=== PATIENT | male | born 1985 | race Caucasian/White ===

== ENCOUNTER 2022-02-21 14:30 | Inpatient (IN) | payer BC, SELFPAY ==
--- NOTE | 2022-02-21 14:51 | ED.C_ITS ---
Documented by User: JUANCARLOS Chappell 02/21/22 16:23 HPI - Psych General: Chief Complaint: Psychiatric Symptoms Stated Complaint: 96 hour hold Time Seen by Provider: 02/21/22 14:43 History of Present Illness: Patient is a 36-year-old male who comes to the ED via police for mental health evaluation. Past medical history of PTSD, bipolar disorder. Patient is giving minimal responses to my questions. When asked if he is suicidal he says I am not going to tell you my answer because then you guys will keep me here. Patient did endorse wanting something for anxiety. He denies any recent drug or alcohol use. protective services officer brought in signed affidavit on patient. Officer told nurse that patient has a history of meth amphetamine use. Affidavit stated that police officers were called out to the scene because of a combative suspect. Once they are on the scene he still patient and he refused to get out of his vehicle. He then drove off in the vehicle and state troopers were able to finally get him to stop and restrain patient. He stated to them that he wanted to end his life and they also said he was having hallucinations. Patient's family told officers that they think he is having another mental episode. Associated symptoms: Reports suicidal ideation Review of Systems Const: Denies: fever(s), chills or fatigue Eyes: Denies: change in vision or eye discomfort ENMT: Denies: throat pain, odynophagia, nasal discharge or nasal congestion Card: Denies: chest pain, palpitations, edema, swelling of feet/ankles, dyspnea on exertion or orthopnea Resp: Denies: dyspnea, productive cough or non-productive cough GI: Denies: abdominal pain, nausea, vomiting, diarrhea, constipation or hematochezia : Denies: flank pain, difficulty urinating, dysuria or hematuria Musc: Denies: neck pain, back pain or extremity swelling Skin/Breast: Denies: rash or new lesions Neuro: Denies: headache(s), numbness in extremities or weakness in extremities Psych: Reports: anxiety and suicidal ideation Physical Exam Const: COMMON NORMALS: patient oriented x3 HENMT: COMMON NORMALS: normocephalic HEAD & SCALP: normocephalic MOUTH: Normal oral and palatal mucosa present THROAT: posterior oropharynx normal and uvula midline Neck/C-Spine: COMMON NORMALS: supple GENERAL: Yes normal visual inspection Resp: COMMON NORMALS: normal respiratory effort, No retractions, No use of acc essory muscles and clear to auscultation bilaterally AUSCULTATION: clear to auscultation bilaterally Cardio: COMMON NORMALS: regular rate, regular rhythm, S1 normal heart sound present, S2 normal heart sound present, No gallops present (Cardio), No clicks present (Cardio), No murmurs present (Cardio) and Peripheral pulses 2+ throughout RATE: regular rate RHYTHM: regular rhythm HEART SOUNDS: S1 normal heart sound present and S2 normal heart sound present PERIPHERAL PULSES: Peripheral pulses 2+ throughout GI: COMMON NORMALS: Normal to inspection, nondistended, normoactive bowel sounds present, Soft to palpation, non-tender and no masses PALPATION: Yes Soft to palpation : COMMON NORMALS: Yes no CVA tenderness BLADDER/KIDNEY EXAM: Yes no CVA tenderness Back/Pelvis: COMMON NORMALS: no CVA tenderness Neuro: COMMON NORMALS: patient oriented x3 GAIT: Yes Normal gait present Course Vital Signs: Vital signs: Vital Signs Temperature 98.2 F 02/21/22 15:06 Pulse Rate 58 L 02/21/22 15:06 Respiratory Rate 16 02/21/22 15:06 Blood Pressure 134/97 02/21/22 15:06 Pulse Oximetry 98 02/21/22 15:06 Oxygen Delivery Me thod 02/21/22 15:06 [facility] - Psych Medical Decision Making Patient is a 36-year-old male comes to the ED via police with signed affidavit for psych evaluation. Signed affidavit stated patient was having hallucinations and made comments of wanting to kill himself. He has a history of meth use. Psych prescreening labs performed. I contacted Dr. Dowd about patient case and he accepts admission of patient to the NPU. Dr. Andrews will be placing the admitting orders. Lab Data I reviewed the patient's lab results. 02/21/22 15:05 02/21/22 15:05 Laboratory Results WBC 12.0 10^3/uL (4.0-10.0) H 02/21/22 15:05 RBC 4.76 10^6/uL (4.1-5.3) 02/21/22 15:05 Hgb 13.9 g/dL (11.7-16.6) 02/21/22 15:05 Hct 41.9 % (42.0-52.0) L 02/21/22 15:05 MCV 88.0 fl (80-94) 02/21/22 15:05 MCH 29.2 pg (28.0-34.0) 02/21/22 15:05 MCHC 33.2 g/dL (30.0-36.0) 02/21/22 15:05 RDW 15.9 % (12.1-15.1) H 02/21/22 15:05 Plt Count 421 10^3/cmm (130-400) H 02/21/22 15:05 MPV 9.7 fL (7.4-10.4) 02/21/22 15:05 Neut % (Auto) 71.7 % 02/21/22 15:05 Lymph % (Auto) 20.9 % 02/21/22 15:05 [place] % (Auto) 6.7 % 02/21/22 15:05 Eos % (Auto) 0.1 % 02/21/22 15:05 Baso % (Auto) 0.3 % 02/21/22 15:05 Neut # (Auto) 8.60 10^3/uL (1.8-7.7) H 02/21/22 15:05 Lymph # (Auto) 2.5 10^3/uL (0.8-4.8) 02/21/22 15:05 [place] # (Auto) 0.8 10^3/uL (0.2-0.9) 02/21/22 15:05 Eos # (Auto) 0.0 10^3/uL (0.0-0.8) 02/21/22 15:05 Baso # (Auto) 0.0 10^3/uL (0.0-0.1) 02/21/22 15:05 Nucleated RBC % (auto) 0 % 02/21/22 15:05 Nucleated RBCs # 0.0 /100WBC 02/21/22 15:05 Sodium 137 mmol/L (136-145) 02/21/22 15:05 Potassium 4.0 mmol/L (3.5-5.1) 02/21/22 15:05 Chloride 103 mmol/L (98-107) 02/21/22 15:05 Carbon Dioxide 23 mmol/L (22-29) 02/21/22 15:05 Anion Gap 15.0 (5-19) 02/21/22 15:05 BUN 18 mg/dL (6-20) 02/21/22 15:05 Creatinine 0.6 mg/dL (0.7-1.2) L 02/21/22 15:05 GFR Calculation 151.6 mL/min (90-130) H 02/21/22 15:05 Glucose 80 mg/dL (65-115) 02/21/22 15:05 Calculated Osmolality 285 mOsm/kg (285-295) 02/21/22 15:05 Calcium 8.4 mg/dL (8.5-10.5) L 02/21/22 15:05 Total Bilirubin 0.7 mg/dL (0.15-1.2) 02/21/22 15:05 AST 150 U/L (0-40) H 02/21/22 15:05 ALT 224 U/L (0-41) H 02/21/22 15:05 Alkaline Phosphatase 150 U/L (40-130) H 02/21/22 15:05 Total Protein 6.6 g/dL (6.6-8.7) 02/21/22 15:05 Albumin 3.9 g/dL (3.5-5.2) 02/21/22 15:05 Globulin 2.7 g/dL (1.3-4.6) 02/21/22 15:05 Lipase 17 U/L (13-60) 02/21/22 15:05 Salicylates < 0.3 mg/dL (3-10) L 02/21/22 15:05 Acetaminophen < 5.0 ug/mL (10-30) L 02/21/22 15:05 Ethyl Alcohol < 10 mg/dL (0-10) 02/21/22 15:05 Discharge Plan Discharge Patient Disposition: Admitted As Inpatient Clinical Impression: Acute psychosis, Suicidal ideation, Drug-induced psychotic disorder Condition: Stable Sign Out Sign Out Data: Patient Sign Out occurred on 02/21/22 at 15:41. Patient's care was discussed, and care was transferred from to Geoffrey Andrews DO. Coding Level of Care Code ED Crane Follower for Chg Fwd Exam Comprehensive Documented by User: Geoffrey Andrews DO 02/21/22 15:45 HPI - Psych General: Chief Complaint: Psychiatric Symptoms Stated Complaint: 96 hour hold Time Seen by Provider: 02/21/22 14:43 Course Vital Signs: Vital signs: Vital Signs Temperature 98.2 F 02/21/22 15:06 Pulse Rate 58 L 02/21/22 15:06 Respiratory Rate 16 02/21/22 15:06 Blood Pressure 134/97 02/21/22 15:06 Pulse Oximetry 98 02/21/22 15:06 Oxygen Delivery Me thod 02/21/22 15:06 MDM - Psych Medical Decision Making Patient is a 36-year-old male comes to the ED via police with signed affidavit for psych evaluation. Signed affidavit stated patient was having hallucinations and made comments of wanting to kill himself. He has a history of meth use. Psych prescreening labs performed. I contacted Dr. Dowd about patient case and he accepts admission of patient to the NPU. Dr. Andrews will be placing the admitting orders. Chart reviewed and patient discussed with midlevel. Agree with assessment and plan. Orders written concur with history review of systems and physical as documented by Sadi Gonzales. Lab Data 02/21/22 15:05 02/21/22 15:05 Laboratory Results WBC 12.0 10^3/uL (4.0-10.0) H 02/21/22 15:05 RBC 4.76 10^6/uL (4.1-5.3) 02/21/22 15:05 Hgb 13.9 g/dL (11.7-16.6) 02/21/22 15:05 Hct 41.9 % (42.0-52.0) L 02/21/22 15:05 MCV 88.0 fl (80-94) 02/21/22 15:05 MCH 29.2 pg (28.0-34.0) 02/21/22 15:05 MCHC 33.2 g/dL (30.0-36.0) 02/21/22 15:05 RDW 15.9 % (12.1-15.1) H 02/21/22 15:05 Plt Count 421 10^3/cmm (130-400) H 02/21/22 15:05 MPV 9.7 fL (7.4-10.4) 02/21/22 15:05 Neut % (Auto) 71.7 % 02/21/22 15:05 Lymph % (Auto) 20.9 % 02/21/22 15:05 [place] % (Auto) 6.7 % 02/21/22 15:05 Eos % (Auto) 0.1 % 02/21/22 15:05 Baso % (Auto) 0.3 % 02/21/22 15:05 Neut # (Auto) 8.60 10^3/uL (1.8-7.7) H 02/21/22 15:05 Lymph # (Auto) 2.5 10^3/uL (0.8-4.8) 02/21/22 15:05 [place] # (Auto) 0.8 10^3/uL (0.2-0.9) 02/21/22 15:05 Eos # (Auto) 0.0 10^3/uL (0.0-0.8) 02/21/22 15:05 Baso # (Auto) 0.0 10^3/uL (0.0-0.1) 02/21/22 15:05 Nucleated RBC % (auto) 0 % 02/21/22 15:05 Nucleated RBCs # 0.0 /100WBC 02/21/22 15:05 Sodium 137 mmol/L (136-145) 02/21/22 15:05 Potassium 4.0 mmol/L (3.5-5.1) 02/21/22 15:05 Chloride 103 mmol/L (98-107) 02/21/22 15:05 Carbon Dioxide 23 mmol/L (22-29) 02/21/22 15:05 Anion Gap 15.0 (5-19) 02/21/22 15:05 BUN 18 mg/dL (6-20) 02/21/22 15:05 Creatinine 0.6 mg/dL (0.7-1.2) L 02/21/22 15:05 GFR Calculation 151.6 mL/min (90-130) H 02/21/22 15:05 Glucose 80 mg/dL (65-115) 02/21/22 15:05 Calculated Osmolality 285 mOsm/kg (285-295) 02/21/22 15:05 Calcium 8.4 mg/dL (8.5-10.5) L 02/21/22 15:05 Total Bilirubin 0.7 mg/dL (0.15-1.2) 02/21/22 15:05 AST 150 U/L (0-40) H 02/21/22 15:05 ALT 224 U/L (0-41) H 02/21/22 15:05 Alkaline Phosphatase 150 U/L (40-130) H 02/21/22 15:05 Total Protein 6.6 g/dL (6.6-8.7) 02/21/22 15:05 Albumin 3.9 g/dL (3.5-5.2) 02/21/22 15:05 Globulin 2.7 g/dL (1.3-4.6) 02/21/22 15:05 Lipase 17 U/L (13-60) 02/21/22 15:05 Salicylates < 0.3 mg/dL (3-10) L 02/21/22 15:05 Acetaminophen < 5.0 ug/mL (10-30) L 02/21/22 15:05 Ethyl Alcohol < 10 mg/dL (0-10) 02/21/22 15:05 Discharge Plan Discharge Patient Disposition: Admitted As Inpatient Clinical Impression: Acute psychosis, Suicidal ideation, Drug-induced psychotic disorder Condition: Stable Sign Out Sign Out Data: Patient Sign Out occurred on 02/21/22 at 15:41. Patient's care was discussed, and care was transferred from to Geoffrey Andrews DO. Coding Level of Care Code ED Crane Follower for Bruce Fwd Exam Comprehensive
[2022-02-21 15:06] VITALS: BP 134/97; PULSE 58; RESP 16; TEMP 36.8; O2SAT 98; BMI 23.2
[2022-02-21 15:13] LABS: Basophils % 0.3 %; Eosinophils % 0.1 %; Hematocrit 41.9 % (42.0-52.0); Hemoglobin 13.9 g/dL (11.7-16.6); Lymphocytes # 2.5 10^3/uL (0.8-4.8); Lymphocytes % 20.9 %; Mean Corpuscular HGB Conc 33.2 g/dL (30.0-36.0); Mean Corpuscular Hemoglobin 29.2 pg (28.0-34.0); Mean Platelet Volume 9.7 fL (7.4-10.4); Monocytes # 0.8 10^3/uL (0.2-0.9); Monocytes % 6.7 %; Neutrophils % 71.7 %; Nucleated Red Blood Cells % 0 %; Platelet Count 421 10^3/cmm (130-400); Red Blood Count 4.76 10^6/uL (4.1-5.3); Red Cell Distribution Width 15.9 % (12.1-15.1)
[2022-02-21] MEDS: LORazepam 2 mg Tablet PO (15:31)
[2022-02-21 15:32] LABS: Alanine Aminotransferase 224 U/L (0-41); Albumin Level 3.9 g/dL (3.5-5.2); Alkaline Phosphatase 150 U/L (40-130); Aspartate Amino Transferase 150 U/L (0-40); Blood Urea Nitrogen 18 mg/dL (6-20); Calcium 8.4 mg/dL (8.5-10.5); Carbon Dioxide 23 mmol/L (22-29); Chloride 103 mmol/L (98-107); Globulin 2.7 g/dL (1.3-4.6); Glomerular Filtration Rate 151.6 mL/min (90-130); Glucose 80 mg/dL (65-115); Lipase 17 U/L (13-60); Osmolality Calculated 285 mOsm/kg (285-295); Sodium 137 mmol/L (136-145); Total Bilirubin 0.7 mg/dL (0.15-1.2); Total Protein 6.6 g/dL (6.6-8.7)
[2022-02-21 15:33] LABS: Acetaminophen < 5.0 ug/mL (10-30); Alcohol Level < 10 mg/dL (0-10); Salicylate < 0.3 mg/dL (3-10)
[2022-02-21 18:28] VITALS: BP 125/91; PULSE 54; RESP 16; O2SAT 91
[2022-02-21 19:35] VITALS: BP 125/91; PULSE 54; RESP 16; TEMP 36.8; O2SAT 91
[2022-02-22] VITALS (8 sets, daily range): BP systolic 125–135; BP diastolic 91–99; PULSE 56–107; RESP 17–20; TEMP 36.3–36.9; O2SAT 93–99
--- NOTE | 2022-02-22 00:46 | PC.NURSE ---
at 2350 notified security to come and removed 2 small zip lock back with powdery residue in them. Security Parker came to unit removed from unit.
--- NOTE | 2022-02-22 01:20 | PC.NURSE ---
2100 medication administration attempt to wake pt who jerked his shoulder away from my touch an grunted refused medication pass.
[2022-02-22] MEDS: potassium chloride ER 20 mEq Tablet 40 MEQ PO (08:06)
[2022-02-22] MEDS: FUROsemide 40 mg Tablet 80 MG PO (08:06)
[2022-02-22] MEDS: diphenhydrAMINE 50 mg Capsule PO ×2 (08:06→12:34)
[2022-02-22] MEDS: LORazepam 2 mg Tablet PO ×2 (08:07→12:34)
[2022-02-22] MEDS: haloperidol 5 mg Tablet PO ×2 (08:07→12:33)
--- NOTE | 2022-02-22 09:30 | PC.OT ---
OT EVALUATION ORDERS RECEIVED. NURSING ASKS THAT EVALUATION BE HELD TODAY DUE TO AGITATION.
--- NOTE | 2022-02-22 12:39 | PC.NURSE ---
Patient received this morning laying in bed. Restless; keeps moving from bed to lying on floor mat. Vital signs WNL. Patient agitated and verbal aggressive towards Nurse. Complaint of abdominal and chest pain this morning; Doctor made aware. rec'd orders for RT eval and benadryl 50mg by every 4 hours PRN and Ativan 2mg by mouth every 4 hrs PRN for agitation. Received Ativan, Benadryl, and Haldol as ordered for agitation this morning 0748 with good result. Patient at present came out of room and sat on floor; nurse and stafff assisted patient back into room;patient very restless and agitated. Prn ativan, benadryl and haldol given as prescribed at this time. In bed resting. Rt eval done and patient cleared. O2 sat 99%. Monitoring.
--- NOTE | 2022-02-22 13:48 | CT_ITS ---
WS: [id number] CT HEAD TECHNIQUE: Noncontrast CT of the head obtained from the skullbase to the vertex. CLINICAL INFORMATION: unwitness fall COMPARISON: None. DLP: 990.[address] scans at [facility] use at least one of these dose optimization techniques: automated e xposure control; mA and/or kV adjustment per patient size (includes targeted exams where dose is matc hed to clinical indication); or iterative reconstruction. FINDINGS: No evidence of intracranial hemorrhage or mass effect. Ventricular system and basal cisterns are curran nt. No extra-axial fluid collections. No evidence of mass or mass effect. Normal montemayor-white different iation. Mucosal thickening in the RIGHT maxillary sinus. Mild mucosal thickening ethmoid air cells and RIGHT frontal ethmoidal recess. Frontal sinuses are well aerated. Mastoid air cells are well aerated. Zaira l posterior nasopharynx. CT/CT head wo con* [id number] IMPRESSION: 1. No evidence of intracranial hemorrhage or mass effect. 2. Normal montemayor-white differentiation. 3. Mild mucosal thickening in the RIGHT frontoethmoidal recess and RIGHT maxil nikolay sinus. Mild mucosal thickening ethmoid air cells. 4. No acute intracranial findings.
--- NOTE | 2022-02-22 13:55 | PC.NURSE ---
Patient found on bathroom floor in sitting position @ 1335. Unwitnessed. Assessment done. No open areas or swelling noted to head. Vital signs 135/99-57-20-97.4 temp- O2 sat 94%. Dr. Dowd notified of unwitnessed fall. Received order for CT of head w/o contrast.
--- NOTE | 2022-02-22 13:58 | P.NPUHP_ITS ---
Providers/Chief Complaint Admitting Physician: Ventura Dowd MD Chief Complaint: 96 hour hold HPI NPU History of Present Illness Jose Angel Madrigal is a 36 year old male who presented to the emergency department with the following report: Chief Complaint: Psychiatric Symptoms Stated Complaint: 96 hour hold Time Seen by Provider: 02/21/22 14:43 History of Present Illness: Patient is a 36-year-old male who comes to the ED via police for mental health evaluation. Past medical history of PTSD, bipolar disorder. Patient is giving minimal responses to my questions. When asked if he is suicidal he says I am not going to tell you my answer because then you guys will keep me here. Patient did endorse wanting something for anxiety. He denies any recent drug or alcohol use. state [address] police officer brought in signed affidavit on patient. Officer told nurse that patient has a history of meth amphetamine use. Affidavit stated that police officers were called out to the scene because of a combative suspect. Once they are on the scene he still patient and he refused to get out of his vehicle. He then drove off in the vehicle and state troopers were able to finally get him to stop and restrain patient. He stated to them that he wanted to end his life and they also said he was having hallucinations. Patient's family told officers that they think he is having another mental episode. Associated symptoms: Reports suicidal ideation. He was admitted to the neuropsychiatric unit for definitive treatment of those issues. From the time that he arrived at the unit as well as this morning he is fairly disoriented. He has not been able to really participate in the history taking process only having moments of transient alertness with being shaken or his name being yelled. He has only really mumbled here and there. He has made offensive comments to the nurses when they have moved some. He had to be assisted to his bed when he got to the unit. He had no helpful information for me and we at this point did not have a UDS to have a sense of why he is having the response he is having. Meds NPU Home Medications Medication Instructions Recorded Confirmed Last Taken Type furosemide 40 mg tablet 80 mg PO DAILY 02/21/22 02/21/22 02/21/22 History lisinopril 2.5 mg tablet 2.5 mg PO BEDTIME 02/21/22 02/21/22 02/20/22 History metoprolol succinate 25 mg 12.5 mg PO BEDTIME 02/21/22 02/21/22 02/20/22 History tablet,extended release 24 hr potassium chloride 20 mEq 40 meq PO DAILY 02/21/22 02/21/22 02/21/22 History tablet,extended release(part/cryst) quetiapine 100 mg tablet 100 mg PO BEDTIME 02/21/22 02/21/22 02/20/22 History sertraline 50 mg tablet 50 mg PO BEDTIME 02/21/22 02/21/22 02/20/22 History Allergies Allergy/AdvReac Type Severity Reaction Status Date / Time No Known Allergies Allergy Unverified 02/21/22 15:30 Mental Status Exam MSE Comments: This is a slender diminutive white male in hospital scrubs with poor grooming and intermittent occasional eye contact. No abnormal movements except for significant psychomotor retardation. Mostly uncooperative with exam in mild distress. Speech was limited and decreased rate and volume and slurred. Mood not described affect lethargic. Thought process linear at best. Thought content: Patient did not respond to any questions with anything other than mumbles but did not have aggression directed at himself or others, no cognitive interactions that would have indicated delusional content and he does not appear to be attending to internal stimuli but he does appear to be confused. Attention and concentration are impaired and memory was unable to be assessed but none were formally tested. He is arousable somewhat and it is unclear if he is oriented. Insight and judgment and impulse control appear impaired. Vitals/I&O/Wt Last Vital Signs Temp 98.2 F 02/22/22 14:00 Pulse 56 L 02/22/22 14:00 Resp 20 H 02/22/22 14:00 BP 125/91 02/22/22 14:00 Pulse Ox 97 02/22/22 14:00 O2 Del Method 02/22/22 14:00 Weight last 48 hrs Weight 79.832 kg Data NPU 02/21/22 15:05 02/21/22 15:05 A&P Assessment and plan (1) Acute psychosis: (2) Suicidal ideation: Plan This is a 36-year old white male with a significant medical history and possible addiction history who presents on psychiatric medication but are not able to communicate exactly what led to his 96-hour hold and confused state. Plan: 1.? Continue current medication.? We will restart home medications and try to get some collateral information given his current noncommunicative state. 2.? Continue every 15 minute checks for safety. 3.? Encourage individual, group and milieu therapies. 4.? Encourage sober living treatment after discharge at the highest level of care to which he is willing to commit. 5. Consider a hospitalist consult if he continues to be so confused. We will also reach out to close contacts to try to get some sense of what led to this presentation or if it represents a relapse in his addiction history. Attestations NPU Medical Necessity Statement*: Inpatient hospitalization is medically necessary and the clinically appropriate intervention at this time.? We will monitor/init iate medications and titrate and make changes as indicated.? He will be in the hospital over 2 midnights. Likely length of stay 4 to 6 days. Coding Level of Care Code Acute Code for Chg Fwd Diagnoses Acute psychosis F23 Suicidal ideation R45.851
--- NOTE | 2022-02-22 14:44 | PC.NURSE ---
Patient off unit; escorted to CT at this time via wheelchair by security and staff.
--- NOTE | 2022-02-22 15:09 | PC.NURSE ---
Patient returned to unit at this time with escorts.
--- NOTE | 2022-02-22 18:47 | US_ITS ---
WS: [id number] RIGHT UPPER QUADRANT ULTRASOUND HISTORY: transaminitis, hepatitis vs cirrhosis COMPARISON: None available. Liver: 15.9 cm in length. Normal size liver. No bile duct dilatation or mass. Portal Vein: Normal hepatopetal flow with monophasic waveform. Gallbladder: Normally distended gallbladder with no stones or wall thickening. CBD: 0.4 cm Pancreas: Normal size and echogenicity. Right kidney: 11.5 cm in length. Normal size and echogenicity. No hydronephrosis or mass. Aorta and IVC: Unremarkable abdominal aorta and IVC. No ascites. Cardiac chambers appear enlarged. US/US liver [id number] IMPRESSION: Normal RIGHT upper quadrant ultrasound. Mild cardiac enlargement.
--- NOTE | 2022-02-22 18:49 | XRR_ITS ---
PROCEDURE INFORMATION: Exam: XR Chest Exam date and time: 02/22/2022 6:59 PM Age: 36 years old Clinical indication: Shortness of breath; Additional info: Evalute for pneumonia TECHNIQUE: Imaging protocol: Radiologic exam of the chest. Views: 1 view. COMPARISON: No relevant prior studies available. FINDINGS: Lungs: Vascular congestion. Mixed interstitial and ground-glass opacities in the central lungs and left lung base. Pleural spaces: Unremarkable. No pleural effusion. No pneumothorax. Heart/Mediastinum: Cardiomegaly. Bones/joints: Unremarkable. XR/XR chest 1V portable [id number] IMPRESSION: Cardiomegaly with pulmonary edema. Multilobar pneumonia is considered less likely.
[2022-02-22 19:26] LABS: Basophils # 0.1 10^3/uL (0.0-0.1); Basophils % 0.8 %; Eosinophils # 0.1 10^3/uL (0.0-0.8); Eosinophils % 0.6 %; Hematocrit 49.6 % (42.0-52.0); Hemoglobin 16.5 g/dL (11.7-16.6); Lymphocytes # 3.7 10^3/uL (0.8-4.8); Lymphocytes % 33.4 %; Mean Corpuscular HGB Conc 33.3 g/dL (30.0-36.0); Mean Corpuscular Hemoglobin 29.2 pg (28.0-34.0); Mean Corpuscular Volume 87.8 fl (80-94); Mean Platelet Volume 9.8 fL (7.4-10.4); Monocytes # 0.8 10^3/uL (0.2-0.9); Monocytes % 7.5 %; Neutrophils # 6.33 10^3/uL (1.8-7.7); Neutrophils % 57.4 %; Nucleated Red Blood Cells % 0 %; Platelet Count 436 10^3/cmm (130-400); Red Blood Count 5.65 10^6/uL (4.1-5.3); Red Cell Distribution Width 15.9 % (12.1-15.1)
[2022-02-22 19:30] LABS: Amphetamines Screen Urine Positive (Negative); Barbiturates Screen Urine Negative (Negative); Benzodiazepines Screen Urine Positive (Negative); Cocaine Screen Urine Negative (Negative); Opiate Screen Urine Negative (Negative); PCP Screen Urine Negative (Negative); THC Screen Urine Positive (Negative)
[2022-02-22 19:59] LABS: Troponin T (5th) Once 351 ng/L (0-15)
[2022-02-22 20:02] LABS: NT Pro B Type Natriuretic Pept 10717 pg/mL (0-125)
--- NOTE | 2022-02-22 20:03 | ECG_ITS ---
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 Measurements Intervals [place] Rate: 97 P: 62 AK: 128 QRS: -54 QRSD: 92 T: 93 QT: 379 QTc: 483 Interpretive Statements SINUS RHYTHM LEFT ATRIAL ENLARGEMENT [-0.15mV P-WAVE IN V1/V2] LEFT ANTERIOR FASCICULAR BLOCK [QRS AXIS <= -45, QR IN I, RS IN II] NONSPECIFIC T-WAVE ABNORMALITY No previous ECG available for comparison Electronically Signed On 02-22-2022 20:45:47 DENTAL FLOSS P[employer]ER by Jamie Villegas M.D. [id number]
[2022-02-22 20:04] LABS: Alanine Aminotransferase 237 U/L (0-41); Albumin Level 3.5 g/dL (3.5-5.2); Alkaline Phosphatase 168 U/L (40-130); Anion Gap 17.1 (5-19); Aspartate Amino Transferase 156 U/L (0-40); Blood Urea Nitrogen 17 mg/dL (6-20); Calcium 9.2 mg/dL (8.5-10.5); Carbon Dioxide 24 mmol/L (22-29); Chloride 102 mmol/L (98-107); Globulin 3.1 g/dL (1.3-4.6); Glomerular Filtration Rate 84.1 mL/min (90-130); Glucose 86 mg/dL (65-115); Osmolality Calculated 289 mOsm/kg (285-295); Potassium 4.1 mmol/L (3.5-5.1); Sodium 139 mmol/L (136-145); Total Protein 6.6 g/dL (6.6-8.7)
[2022-02-22 20:52] LABS: Hepatitis A Antibody IgM Non-Reactive (Nonreactive); Hepatitis B Core AB, Total Non-Reactive (Nonreactive); Hepatitis B Surface AB 18.9 (11.5-1000); Hepatitis B Surface Antigen Non-Reactive (Nonreactive); Hepatitis C Virus Antibody Non-Reactive (Nonreactive)
--- NOTE | 2022-02-22 20:52 | P.CONIM_ITS ---
Providers/Reason For Consult Consulting Physician/Specialty*: Yany Stringer MD/Hospitalist Reason for Consult*: Altered mental status Requesting Physician: Ventura Dowd MD Attending Physician: Ventura Dowd MD History of Present Illness History of Present Illness History is obtained by talking to NPU staff who had earlier spoken to patient's family. Jose Angel Madrigal is a 36 year old male with PMH psychosis, ? CHF, emphysema brought to the ER yesterday. Reportedly patient had used amphetamines and marijuana and shown up at his father; honey where he collapsed at the entrance. He has been confused thereafter, speaking only a few ords which are out of context and delusional. His family thought that he may be off his medication and hence suffering acute psychosis for which he was brought to the hospital. He was admitted to the NPU where he has remained confused and drowsy since admission. Today he was using the shower where he fell and was noted to have urinated on the floors. He has been laying in his room for the day, disoriented when awake. He did complain of some chest discomfort at some point to the staff. CT head was perfromed after his fall which was negative. His vitals have been stable. He has been afebrile. Review of Systems General: Reports: ROS unobtainable due to mental status Medications/Allergies Home Medications Medication Instructions Recorded Confirmed Last Taken Type furosemide 40 mg tablet 80 mg PO DAILY 02/21/22 02/21/22 02/21/22 History lisinopril 2.5 mg tablet 2.5 mg PO BEDTIME 02/21/22 02/21/22 02/20/22 History metoprolol succinate 25 mg 12.5 mg PO BEDTIME 02/21/22 02/21/22 02/20/22 History tablet,extended release 24 hr potassium chloride 20 mEq 40 meq PO DAILY 02/21/22 02/21/22 02/21/22 History tablet,extended release(part/cryst) quetiapine 100 mg tablet 100 mg PO BEDTIME 02/21/22 02/21/22 02/20/22 History sertraline 50 mg tablet 50 mg PO BEDTIME 02/21/22 02/21/22 02/20/22 History Allergies Allergy/AdvReac Type Severity Reaction Status Date / Time No Known Allergies Allergy Unverified 02/21/22 15:30 Current Medications Generic Name Dose Route Start Last Admin Trade Name Jamesq PRN Reason Stop Dose Admin Diphenhydramine HCl 50 mg 02/22/22 07:48 02/22/22 12:34 Diphenhydramine 50 Mg Capsule PO 50 mg Q4H PRN Administration AGITATION Furosemide 80 mg 02/22/22 09:00 02/22/22 08:06 Furosemide 40 Mg Tablet PO 80 mg DAILY SARANYA Administration Haloperidol 5 mg 02/21/22 18:28 02/22/22 12:33 Haloperidol 5 Mg Tablet PO 5 mg Q4H PRN Administration AGITATION Lisinopril 2.5 mg 02/21/22 21:00 02/22/22 01:07 Lisinopril 5 Mg Tablet PO Not Given BEDTIME SARANYA Lorazepam 2 mg 02/22/22 07:47 02/22/22 12:34 Lorazepam 2 Mg Tablet PO 2 mg Q4H PRN Administration ANXIETY Metoprolol Succinate 12.5 mg 02/21/22 21:00 02/22/22 01:07 Metoprolol Succinate Er (24 Hr) 25 Mg Tablet PO Not Given BEDTIME SARANYA Potassium Chloride 40 meq 02/22/22 09:00 02/22/22 08:06 Potassium Chloride Er 20 Meq Tablet PO 40 meq DAILY SARANYA Administration Quetiapine Fumarate 100 mg 02/21/22 21:00 02/22/22 01:07 Quetiapine 100 Mg Tablet PO Not Given BEDTIME SARANYA Sertraline HCl 50 mg 02/21/22 21:00 02/22/22 01:07 Sertraline 50 Mg Tablet PO Not Given BEDTIME SARANYA Vitals/I&O/Wt Last Vital Signs Temp 97.4 F L 02/22/22 15:15 Pulse 102 H 02/22/22 19:47 Resp 17 02/22/22 19:47 BP 132/94 02/22/22 19:47 Pulse Ox 93 02/22/22 19:47 O2 Del Method 02/22/22 15:15 Weight last 48 hrs Weight 79.832 kg Physical Exam Narrative: General: Laying in bed on his right side, does not open eyes to calling name and does not follow any commands or answer questions at this time Chest: Normal vesicular breath sounds, no added sounds, equal good air entry bilaterally CVS: S1-S2 regular, no murmurs, no tachycardia, no gallops, no rubs Abdomen: Soft, nontender, no organomegaly, bowel sounds present Neuro: No focal deficits, moves all extremities in bed Extremities: edema over B/L feet, mild Data 02/22/22 19:12 02/22/22 19:12 Micro: Microbiology 02/22/22 19:15 Blood Culture - Preliminary Blood SPECIMEN COLLECTED 02/22/22 19:12 Blood Culture - Preliminary Blood SPECIMEN COLLECTED Other data: Ct head 02/21 CT/CT head wo con* [id number] IMPRESSION: ? 1.? No evidence of intracranial hemorrhage or mass effect. 2.? Normal montemayor-white differentiation. 3.? Mild mucosal thickening in the RIGHT frontoethmoidal recess and RIGHT maxillary sinus. Mild mucosal thickening ethmoid air cells. 4.? No acute intracranial findings. A&P Assessment and plan (1) Altered mental status: AMS of unclear etiology May be related to intoxication from polysustance abuse vs metabolic causes Yesterday he was noted to have abnormal liver enzymes on CMP and leukocytosis on CBC Check repeat CBC, CMP , U tox screen, hepatitis panel, TSH, ammonia level, trop series (c/o chest pain), ABG (h/o emphysema), CXRP to evaluate for pneumonia vs atelactasis. Additionally check RUQ US to ascertain liver and biliaty morphology . Further orders based on results of this testing Consult Attestations Medical Necessity Statement: per admitting Coding Level of Care Code Acute Code for Chg Fwd Diagnoses Altered mental status R41.82
[2022-02-22 21:19] LABS: Ammonia 28 umol/L (16-60)
[2022-02-22 21:31] LABS: Troponin(5th) Baseline 399 ng/L (0-15)
[2022-02-22 21:50] LABS: ABG PCO2 33.7 mmHg (35-45); ABG PH Result 7.46 (7.35-7.45); Base Excess ABG 0.8 mmol/L (-2.0-2.0); Blood Gas Allen Test Pos; Blood Gas Sample Site Radial, left; Blood Gas Sample Type Arterial; Oxygen Device ROOM AIR; PO2 ABG 59.6 mmHg (80.0-100.0)
--- NOTE | 2022-02-22 21:55 | USCV_ITS ---
Jose Angel Madrigal Age: 36 Gender: M : 1985 Exam Date: 02/22/2022 22:34 Ordering Phys: Nuno Car MD Technologist: YUNI [place] [facility] [place]: IV Meth abuser BP: 132 / 94 HR: 96 Rhythm: Sinus Technical Quality: Adequate MEASUREMENTS (Male / Female) Normal Values 2D ECHO LV Diastolic Diameter PLAX 5.8 cm 4.2 - 5.9 / 3.9 - 5.3 cm IVS Diastolic Thickness 0.8 cm 0.6 - 1.0 / 0.6 - 0.9 cm LVPW Diastolic Thickness 1.6 cm 0.6 - 1.0 / 0.6 - 0.9 cm LVOT Diameter 2.2 cm LV Ejection Fraction MOD 2C 11.7 % LV Ejection Fraction 2C AL 11.7 % LA Diameter 4.8 cm LA Width 5.8 cm LA Height 6.5 cm RA Width 5.2 cm RA Height 5.4 cm Aorta at Sinotubular Diameter 3.5 cm IVC Diameter 2.5 cm M-MODE Aortic Annulus Diameter 3.8 cm LA Ao Ratio MM 1.2 MV E Point Septal Separation 2.4 cm DOPPLER AV Peak Velocity 68.0 cm/s LVOT Peak Velocity 49.0 cm/s AV Area Cont Eq vti 2.2 cm squared AV Area Cont Eq pk 2.6 cm squared MV Area PHT 7.6 cm squared Mitral E to A Ratio 2.2 MV E' Velocity 49.5 cm/s Mitral E to MV E' Ratio 27.2 Mitral E to LV E' Lateral Ratio 23.8 Mitral E to LV E' Septal Ratio 32.8 TR Peak Velocity 244.3 cm/s TR Peak Gradient 23.9 mmHg TV Peak E Velocity 27.0 cm/s Right Atrial Pressure 15.0 mmHg Pulmonary Artery Systolic Pressu 38.9 mmHg PV Peak Velocity 59.0 cm/s RV Acceleration Time 0.1 s RV Ejection Time 0.3 s RV AcT/ET 0.3 FINDINGS Left Ventricle Dilated left ventricle. Increased left ventricular wall thickness. Severely decreased left ventricular systolic function. Left ventricular ejection fraction is estimated at 20 %. Severe Global left ventricular hypokinesis. Restrictive filling pattern with severely elevated filling pressures. Right Ventricle Normal right ventricular size and systolic function. Right ventricular systolic pressure 38.9 mmHg. Right Atrium Normal right atrial size. Right atrial pressure estimated at 15 mm Hg. Left Atrium Moderately increased left atrial size. Mitral Valve Moderately thickened mitral valve. No mitral valve stenosis. Mild-moderate mitral valve regurgitation. Aortic Valve Structurally normal trileaflet aortic valve. No aortic valve stenosis. No aortic valve regurgitation. Tricuspid Valve Structurally normal tricuspid valve. No tricuspid valve stenosis. Mild tricuspid valve regurgitation. Pulmonic Valve Structurally normal pulmonic valve. No pulmonary valve stenosis. Trace pulmonary valve regurgitation. Pericardium Trivial pericardial effusion. Aorta Normal size aortic root and proximal ascending aorta. IVC Dilated IVC with no respiratory variation. CONCLUSIONS 1. Dilated left ventricle. Increased left ventricular wall thickness. Severely decreased left ventricular systolic function. Left ventricular ejection fraction is estimated at 20 %. Severe Global left ventricular hypokinesis. Restrictive filling pattern with severely elevated filling pressures. 2. Mild-moderate mitral valve regurgitation. 3. Dilated IVC with no respiratory variation. 4. Mild pulmonary hypertension with pulmonary artery pressure estimated at 39 mm Hg. 5. No prior similar studies to compare. Genna Norris MD (Electronically Signed) Final Date: 23 February 2022 14:27 S
[2022-02-22 23:29] LABS: Procalcitonin 0.19 ng/mL (0-0.5)
[2022-02-22 23:40] LABS: C Reactive Protein 17.3 mg/L (0.0-4.9); Creatine Phosphokinase 209 U/L (39-308)
[2022-02-22 23:41] LABS: Alcohol Level < 10 mg/dL (0-10)
[2022-02-22 23:42] LABS: HIV 1 & 2 Antibody Non-Reactive (Non-Reactiv); HIV 1 & 2 Antigen Non-Reactive (Non-Reactiv)
[2022-02-22 23:49] LABS: Troponin 5 2HR 418.7 ng/L (0-15); Troponin 5 2HR Delta 19.7 ABS# (0-10)
[2022-02-23] VITALS (63 sets, daily range): BP systolic 124–132; BP diastolic 95–96; PULSE 83–123; RESP 10–29; TEMP 36.7–37.1; O2SAT 91–98
--- NOTE | 2022-02-23 03:00 | ECG_ITS ---
[facility] Test Date: 2022-02-23 Pat Name: Jose Angel Madrigal Department: Room: ICU02 Gender: Male Data Control Assistant: : 1985 Requested By: Yany Stringer Order Number: [id number] Dena MD: Genna Norris M.D. Measurements Intervals [place] Rate: 85 P: 62 NE: 146 QRS: 33 QRSD: 96 T: 139 QT: 397 QTc: 474 Interpretive Statements SINUS RHYTHM LEFT ATRIAL ENLARGEMENT [-0.15mV P-WAVE IN V1/V2] NONSPECIFIC T-WAVE ABNORMALITY Compared to ECG 02/22/2022 20:31:11 Left anterior fascicular block no longer present T-wave abnormality still present Electronically Signed On 02-23-2022 16:54:17 TRADE MANAGER by Genna Norris M.D. [id number]
[2022-02-23 03:52] LABS: Basophils # 0.1 10^3/uL (0.0-0.1); Basophils % 0.8 %; Eosinophils # 0.1 10^3/uL (0.0-0.8); Eosinophils % 0.7 %; Hematocrit 51.6 % (42.0-52.0); Hemoglobin 16.5 g/dL (11.7-16.6); Lymphocytes # 2.7 10^3/uL (0.8-4.8); Lymphocytes % 24.4 %; Mean Corpuscular Hemoglobin 28.7 pg (28.0-34.0); Mean Corpuscular Volume 89.7 fl (80-94); Mean Platelet Volume 10.3 fL (7.4-10.4); Monocytes # 0.9 10^3/uL (0.2-0.9); Monocytes % 7.7 %; Nucleated Red Blood Cells % 0 %; Platelet Count 451 10^3/cmm (130-400); Red Blood Count 5.75 10^6/uL (4.1-5.3); Red Cell Distribution Width 16.1 % (12.1-15.1); White Blood Count 11.2 10^3/uL (4.0-10.0)
[2022-02-23 04:16] LABS: Lactate (Lactic Acid level) 2.2 mmol/L (0.5-2.2)
[2022-02-23 05:11] LABS: Alanine Aminotransferase 210 U/L (0-41); Albumin Level 3.5 g/dL (3.5-5.2); Alkaline Phosphatase 160 U/L (40-130); Aspartate Amino Transferase 137 U/L (0-40); Blood Urea Nitrogen 18 mg/dL (6-20); Calcium 8.9 mg/dL (8.5-10.5); Carbon Dioxide 21 mmol/L (22-29); Chloride 102 mmol/L (98-107); Globulin 2.4 g/dL (1.3-4.6); Glomerular Filtration Rate 108.8 mL/min (90-130); Glucose 72 mg/dL (65-115); Magnesium 2.1 mg/dL (1.7-2.3); Osmolality Calculated 286 mOsm/kg (285-295); Sodium 138 mmol/L (136-145); Total Bilirubin 1.1 mg/dL (0.15-1.2); Total Protein 5.9 g/dL (6.6-8.7)
[2022-02-23 05:17] LABS: Anion Gap 19.4 (5-19); Potassium 4.4 mmol/L (3.5-5.1)
[2022-02-23] MEDS: potassium chloride ER 20 mEq Tablet 40 MEQ PO (08:28)
[2022-02-23] MEDS: FUROsemide 40 mg Tablet 80 MG PO (08:28)
[2022-02-23] MEDS: aspirin 81 mg EC Tablet PO (08:28)
[2022-02-23] MEDS: LORazepam 2 mg Tablet PO ×2 (12:15→19:05)
[2022-02-23] MEDS: enoxaparin 80 mg/0.8 mL Syringe SUBCUT ×2 (12:25→23:45)
--- NOTE | 2022-02-23 12:31 | PC.NURSE ---
Patient very anxious early this shift at shift change. This nurse assumed care. Patient has been resting in bed most of shift. Does get up to use urinal. Patient is able to follow commands. Took telemetry leads off, replaced. Patient can voice profanity towards staff, but has been pleasant with sitter and this nurse. Patient did voice some anxiety and ativan given per MAR and orders at 1215. Patient eating lunch at this time
--- NOTE | 2022-02-23 13:04 | P.PN_ITS ---
Subjective Subjective: Patient was transferred out of [facility] to [facility] level of care after he was found to have an NSTEMI. Labs revealed a baseline troponin of 351, trending up at 2 and 6-hour with a delta of 19 and 17 respectively. Patient denies any chest pain at this time. EKG does not show any acute ST-T wave changes. Patient is not willing to participate in any conversation. He is definitely more alert and awake today. He is able to answer questions from nursing staff regarding water and food. He is using the urinal today and is coordinated while using it. He is additionally able to self feed himself. He is no longer walking aimlessly in the room. However he does not answer any questions from me except to say that he feels great. Additional history obtained from his father is that patient was recently admitted at [facility] in [place] 1 month ago where he had extensive cardiac evaluation. He is unable to tell me if the patient had a cardiac cath at that time. His echocardiogram had revealed an ejection fraction of only 20% and it is believed that chronic drug use was the cause for his cardiomyopathy. Heparin drip had been ordered overnight but it was not run. I am uncertain as to why this was. An event report has been generated. Medications: Reviewed: Yes Vitals/I&O/Wt Last Vital Signs Temp 98.1 F 02/23/22 05:35 Pulse 103 H 02/23/22 07:27 Resp 16 02/23/22 07:27 BP 132/94 02/22/22 19:47 Pulse Ox 93 02/23/22 07:27 O2 Del Method 02/23/22 07:27 02/22/22 02/23/22 02/23/22 22:59 06:59 14:59 Intake Total 200 / 200 240 / 240 Output Total 400 / 400 850 / 850 Balance -200 / -200 -610 / -610 Weight last 48 hrs Weight 79.832 kg Physical Exam Narrative: General: No acute distress, unwilling to participate in any c onversation. No acute distress noted. He appears comfortable, lying flat in bed, saturating 93% on room air. HEENT: PERRLA, pupils bilaterally equal and reactive, pallors not present Chest: Normal vesicular breath sounds, no added sounds, equal good air entry bilaterally CVS: S1-S2 regular, no murmurs, no tachycardia, no gallops, no rubs Abdomen: Soft, nontender, no organomegaly, bowel sounds present Data 02/23/22 03:07 02/23/22 03:07 Micro: Microbiology 02/22/22 19:15 Blood Culture - Preliminary Blood SPECIMEN COLLECTED 02/22/22 19:12 Blood Culture - Preliminary Blood SPECIMEN COLLECTED A&P Assessment and plan (1) Altered mental status: Patient presented to the hospital with altered mental status. Likely secondary to drug use. Urine drug screen tested positive for amphetamines benzodiazepines and marijuana. Patient has multiple track robb over his body. He is currently awake and alert, appears to be in no obvious distress. He is coordinated, able to self-feed, he uses a urinal and using the bathroom independently today. He does not seem to be unsteady. (2) Acute psychosis: Likely secondary to drug use and underlying psych diagnosis. (3) NSTEMI (non-ST elevated myocardial infarction): Patient had complained of chest pain on and off to the n.p.o. staff. He really has not complained of chest pain since presenting to the ICU. Troponin series showing elevated serial troponins in the 350s range with delta of 17 and 19 at 2 and 6 hours respectively. Per his father patient was recently admitted at [facility] for what sounds like heart attack . It is unknown at this time whether he underwent a cardiac cath or not. Records have been requested. Last known EF is at 20%. For further cardiomyopathy was attributed to drug use. Patient is unwilling to engage in conversation with me at this time regarding his further care. He does not say yes or no or talk at all about possibility of cardiac interventions. He is willing to take medications. He is currently on aspirin, atorvastatin, metoprolol 12.5 mg p.o. daily and lisinopril 2.5 mg p.o. daily. Overnight orders for heparin drip was placed but for some reason this was not started. Reason is not known at this time. We will go ahead and start him on Lovenox 1 mg/kg subcutaneously every 12 hours for NSTEMI. Will await records. If he had a fairly recent cardiac cath, we may not need to proceed with any interventional procedures as of now. At any rate he is unwilling to engage in conversation to discuss further care. His family will be here this afternoon. (4) Cardiomyopathy: Last known EF of 20%. Awaiting echocardiogram. Attestations Medical Necessity Statement*: Needs continued admission for NSTEMI and its medical treatment. Coding Level of Care Code Acute Code for [facility] Diagnoses Altered mental status R41.82 Acute psychosis F23 NSTEMI (non-ST elevated myocardial infarction) I21.4 Cardiomyopathy I42.9
--- NOTE | 2022-02-23 15:14 | P.NPUPN_ITS ---
Subjective NPU Subjective: Patient presented today very lethargic as a just given him Ativan for his anxiety. He was not very vocal and needed to be constantly aroused to ask questions which never received answers. Mental Status Exam MSE Comments: This is a slender diminutive white male in hospital scrubs with poor grooming and intermittent occasional eye contact. No abnormal movements except for significant psychomotor retardation. Mostly uncooperative with exam in mild distress. Speech was limited and decreased rate and volume and slurred. Mood not described affect lethargic. Thought process linear at best. Thought content: Patient did not respond to any questions with anything other than mumbles but did not have aggression directed at himself or others, no cognitive interactions that would have indicated delusional content and he does not appear to be attending to internal stimuli but he does appear to be confused. Attention and concentration are impaired and memory was unable to be assessed but none were formally tested. He is arousable somewhat and it is unclear if he is oriented. Insight and judgment and impulse control appear impaired. Vitals/I&O/Wt Last Vital Signs Temp 98.1 F 02/23/22 05:35 Pulse 92 02/23/22 14:20 Resp 12 02/23/22 14:20 BP 124/96 02/23/22 14:20 Pulse Ox 98 02/23/22 14:20 O2 Del Method 02/23/22 07:27 02/23/22 02/23/22 02/23/22 06:59 14:59 22:59 Intake Total 200 / 200 240 / 240 Output Total 400 / 400 850 / 850 300 / 1150 Balance -200 / -200 -610 / -610 -300 / -910 Data NPU 02/23/22 03:07 02/23/22 03:07 Micro: Microbiology 02/22/22 19:15 Blood Culture - Preliminary Blood SPECIMEN COLLECTED 02/22/22 19:12 Blood Culture - Preliminary Blood SPECIMEN COLLECTED Microbiology 02/22/22 19:15 Blood Blood Culture - Preliminary SPECIMEN COLLECTED 02/22/22 19:12 Blood Blood Culture - Preliminary SPECIMEN COLLECTED A&P Assessment and plan (1) Acute psychosis: (2) Suicidal ideation: Plan This is a 36-year old white male with a significant medical history and possible addiction history who presents on psychiatric medication but are not able to communicate exactly what led to his 96-hour hold and confused state. Plan: 1.? Continue current medication.? We will likely return him to the neuropsychiatric unit tomorrow if he continues to improve and is medically cleared. 2.? We will continue to follow. Attestations NPU Medical Necessity Statement*: Inpatient hospitalization is medically necessary and the clinically appropriate intervention at this time.? We will mo nitor/initiate medications and titrate and make changes as indicated.? He will be in the hospital over 2 midnights. Likely length of stay 3-5 days. Coding Level of Care Code Acute Code for Chg Fwd Diagnoses Acute psychosis F23 Suicidal ideation R45.851
--- NOTE | 2022-02-23 15:22 | PC.OT ---
OT Eval Held - Patient inappropriate for NPU evaluation at this time secondary to being in ICU. Eval will occur when patient is released back to the unit.
--- NOTE | 2022-02-23 15:46 | PC.NURSE ---
Dr. Dowd attempted to round with patient. Patient very tired and resting at this time, will attempt to see patient again later
[2022-02-23] MEDS: sertraline 50 mg Tablet PO (19:05)
[2022-02-23] MEDS: metoprolol succinate ER (24 HR) 25 mg Tablet 12.5 MG PO (19:05)
[2022-02-23] MEDS: atorvastatin 40 mg Tablet PO (19:05)
[2022-02-23] MEDS: lisinopril 5 mg Tablet 2.5 MG PO (19:05)
[2022-02-23] MEDS: quetiapine 100 mg Tablet PO (19:05)
--- NOTE | 2022-02-23 23:51 | USCV_ITS ---
Jose Angel Madrigal Age: 36 Gender: M : 1985 Exam Date: 02/23/2022 03:31 Ordering Phys: Nuno Car MD Technologist: YUNI Exam Location: [facility] [place] Indication: no erythema no edema. neuro psych patient was arrested last night and subjected to 96hrs observation. Pt is violent. HISTORY: no erythema no edema. neuro psych patient was arrested last night and subjected to 96hrs observation. Pt can be violent and irrational. PROCEDURES: Venous duplex imaging was performed in bilateral lower extremities. The following venous structures were evaluated: common femoral vein, profunda vein, proximal portion of the greater saphenous vein, superficial femoral vein, and the popliteal vein. In addition, the posterior tibial veins were evaluated. Serial compression, augmentation maneuvers, and spectral Doppler flow evaluation were performed, which were normal. Bilaterally, the common femoral, superficial femoral, profunda femoral, popliteal, posterior tibial, and greater saphenous veins were identified and interrogated in the standard fashion. These veins were found to be easily compressible with spontaneous blood flow. No evidence of thrombus noted. CONCLUSIONS No evidence of right lower extremity DVT. No evidence of left lower extremity DVT. Atif Goncalves MD (Electronically Signed) Final Date: 23 February 2022 09:34 S
[2022-02-24] VITALS (58 sets, daily range): BP systolic 81–120; BP diastolic 46–95; PULSE 72–113; RESP 4–26; TEMP 36.6–36.8; O2SAT 96–100
[2022-02-24] MEDS: LORazepam 2 mg Tablet PO (03:27)
[2022-02-24] MEDS: FUROsemide 40 mg Tablet 80 MG PO (08:50)
[2022-02-24] MEDS: aspirin 81 mg EC Tablet PO (08:50)
[2022-02-24] MEDS: potassium chloride ER 20 mEq Tablet 40 MEQ PO (08:51)
--- NOTE | 2022-02-24 08:54 | PC.NURSE ---
Patient resting in bed at this time. This nurse got patient up to chair and changed linens, provided new clean scrubs, patient brushed teeth and washed self with bath wipes. So far patient has been cooperative and pleasant with staff.
[2022-02-24] MEDS: enoxaparin 80 mg/0.8 mL Syringe SUBCUT (11:59)
--- NOTE | 2022-02-24 13:13 | PM.CONSULT ---
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 He has been in and out of multiple hospitals with complications. Most recently he was in [facility] in [place]. Prior to this admission he apparently had a psychotic episode after doing drugs again. He fled from law enforcement became combative and tried to drive his car away from the officers. He was apparently hallucinating and was brought here and admitted to the psychiatric [facility]. Subsequently was seen by the design intern and transferred to the ICU when his troponin was positive. I have been asked to see him to get him on the right medications for transfer back to the psychiatry [facility]. His troponins were 381, 397 and 418. His BNP is almost 11,000. His toxicology screen is positive for methamphetamine, benzodiazepines and THC. His echo shows global ejection fraction reduction of 20%. He is known to have a nonischemic cardiomyopathy. When he was seen in [place] he was instructed to obtain an outpatient stress test as well as an echo. He failed to follow-up and has been using drugs since then. He has had multiple run-ins with law enforcement. Cardiomyopathy is likely secondary to his amphetamine overuse. He is noncompliant with medical regimens. He claims to have a bipolar disorder and PTSD. He is a smoker. His home medicines include Lasix, lisinopril, beta-chelsie, potassium. He is noncompliant. In the hospital least being given Lasix, lisinopril, metoprolol, potassium. I tried to interview him today he refused to talk. He simply sits there with his eyes closed. Review of Systems Narrative: Unavailable Medications/Allergies Home Medications Medication Instructions Recorded Confirmed Last Taken Type furosemide 40 mg tablet 80 mg PO DAILY 02/21/22 02/21/22 02/21/22 History lisinopril 2.5 mg tablet 2.5 mg PO BEDTIME 02/21/22 02/21/22 02/20/22 History metoprolol succinate 25 mg 12.5 mg PO BEDTIME 02/21/22 02/21/22 02/20/22 History tablet,extended release 24 hr potassium chloride 20 mEq 40 meq PO DAILY 02/21/22 02/21/22 02/21/22 History tablet,extended release(part/cryst) quetiapine 100 mg tablet 100 mg PO BEDTIME 02/21/22 02/21/22 02/20/22 History sertraline 50 mg tablet 50 mg PO BEDTIME 02/21/22 02/21/22 02/20/22 History Allergies Allergy/AdvReac Type Severity Reaction Status Date / Time No Known Allergies Allergy Unverified 02/21/22 15:30 Current Medications Generic Name Dose Route Start Last Admin Trade Name Freq PRN Reason Stop Dose Admin Aspirin 81 mg 02/22/22 21:55 02/24/22 08:50 Aspirin 81 Mg Ec Tablet PO 81 mg DAILY SARANYA Administration Atorvastatin Calcium 40 mg 02/22/22 21:55 02/23/22 19:05 Atorvastatin 40 Mg Tablet PO 40 mg BEDTIME SARANYA Administration Diphenhydramine HCl 50 mg 02/22/22 07:48 02/22/22 12:34 Diphenhydramine 50 Mg Capsule PO 50 mg Q4H PRN Administration AGITATION Enoxaparin Sodium 80 mg 02/23/22 12:30 02/24/22 11:59 Enoxaparin 80 Mg/0.8 Ml Syringe SUBCUT 80 mg Q12H SARANYA Administration Furosemide 80 mg 02/22/22 09:00 02/24/22 08:50 Furosemide 40 Mg Tablet PO 80 mg DAILY SARANYA Administration Haloperidol 5 mg 02/21/22 18:28 02/22/22 12:33 Haloperidol 5 Mg Tablet PO 5 mg Q4H PRN Administration AGITATION Lisinopril 2.5 mg 02/21/22 21:00 02/23/22 19:05 Lisinopril 5 Mg Tablet PO 2.5 mg BEDTIME SARANYA Administration Lorazepam 2 mg 02/22/22 07:47 02/24/22 03:27 Lorazepam 2 Mg Tablet PO 2 mg Q4H PRN Administration ANXIETY Metoprolol Succinate 12.5 mg 02/21/22 21:00 02/23/22 19:05 Metoprolol Succinate Er (24 Hr) 25 Mg Tablet PO 12.5 mg BEDTIME SARANYA Administration Potassium Chloride 40 meq 02/22/22 09:00 02/24/22 08:51 Potassium Chloride Er 20 Meq Tablet PO 40 meq DAILY SARANYA Administration Quetiapine Fumarate 100 mg 02/21/22 21:00 02/23/22 19:05 Quetiapine 100 Mg Tablet PO 100 mg BEDTIME SARANYA Administration Sertraline HCl 50 mg 02/21/22 21:00 02/23/22 19:05 Sertraline 50 Mg Tablet PO 50 mg BEDTIME SARANYA Administration PFSH Acute PFSH: Medical History (Updated 02/24/22 @ 13:23 by Jt Haji MD) Elevated troponin Methamphetamine abuse Vitals/I&O/Wt Last Vital Signs Temp 98.1 F 02/24/22 05:20 Pulse 89 02/24/22 10:01 Resp 16 02/24/22 10:01 BP 111/76 02/24/22 04:00 Pulse Ox 97 02/24/22 10:01 O2 Del Method 02/24/22 10:01 02/23/22 02/24/22 02/24/22 22:59 06:59 14:59 Intake Total 450 / 690 200 / 890 Output Total 600 / 1450 300 / 1750 Balance -150 / -760 -100 / -860 Physical Exam Narrative: GENERAL: In general he looks comfortable sitting in bed but is unwilling to communicate HEENT: Exam within normal limits. NECK: Supple without jugular vein distention. The carotid upstroke is normal without bruits. BACK: Exam normal. LUNGS: Clear. HEART: Regular rate and rhythm. ABDOMEN: Benign without organomegaly or tenderness. EXTREMITIES: No edema. NEUROLOGIC: Exam normal. SKIN: Unremarkable. Data 02/23/22 03:07 02/23/22 03:07 Micro: Microbiology 02/22/22 19:12 Blood Culture - Preliminary Blood NEGATIVE TO DATE 02/22/22 19:15 Blood Culture - Preliminary Blood NEGATIVE TO DATE A&P Assessment and plan (1) Cardiomyopathy: (2) Altered mental status: (3) Acute psychosis: (4) Suicidal ideation: (5) Drug-induced psychotic disorder: (6) Elevated troponin: (7) Methamphetamine abuse: Plan The troponin elevation is related to drug abuse and the cardiomyopathy. The cardiomyopathy is underlying the chronic methamphetamine abuse. It would be very unlikely he has coronary artery disease. He will not be compliant with outpatient regimens. He is compensated enough to go back to the psychiatry [facility]. Medications are appropriate. Consult Attestations Medical Necessity Statement: Psychiatric [facility] hospitalization warranted for polysubstance abuse. Coding Level of Care Code New Pt Acute Code for Chg Fwd Patient Type New History Detailed Exam Detailed Medical Decision Making Moderate Complexity Diagnoses Cardiomyopathy I42.9 Altered mental status R41.82 Acute psychosis F23 Suicidal ideation R45.851 Drug-induced psychotic disorder F19.959 Elevated troponin R77.8 Methamphetamine abuse F15.10
--- NOTE | 2022-02-24 14:30 | PM.TDS ---
Transfer Summary Providers Date of Admission: 02/21/22 18:23 Date of Discharge/Transfer: 02/24/22 Attending Provider at Admission: Ventura Dowd MD Attending Provider at Transfer: Ventura Dowd MD Consults: Cardiology Transfer Plans: Anticipated date of transfer: 02/24/22. Diagnoses at Discharge Discharge Diagnosis (1) Cardiomyopathy: Status: Acute (2) Altered mental status: Status: Acute (3) Acute psychosis: Status: Acute (4) Suicidal ideation: Status: Acute (5) Drug-induced psychotic disorder: Status: Acute (6) Elevated troponin: Status: Acute (7) Methamphetamine abuse: Status: Acute Reason for Visit Reason for Visit 96 hour hold Hospital Course Hospital Course Jose Angel Madrigal is a 36-year-old male with past medical history significant for congestive heart failure, emphysema, polysubstance abuse and cardiomyopathy who presented with altered mental status with suicidal ideation, a found to have acute psychosis and acute toxic metabolic encephalopathy. Patient found to have elevated troponin initially concerning for NSTEMI however presentation more consistent with acute myocardial injury secondary to drug abuse rather than a type I NSTEMI. Echocardiogram revealed LVEF of 20 percent similiar to his prior echocardiogram results at [facility]. Cardiology was consulted and he was medically managed. Patient transferred to an LOAN you in stable condition. Physical Exam Narrative: General: Patient is awake. Appears poorly kept. Head: Normocephalic. Atraumatic. EOM intact. Neck: No JVD. Cardiovascular: RRR. No gallops. No murmurs. Trace lower extremity edema Lungs: Clear to auscultation, no use of accessory muscles, no crackles or wheezes. Skin: No jaundice. No rashes. Abdomen: Normal bowel sounds, abdomen soft and nontender. Genito Urinary: Genital exam not performed since complaints not related. Rectal: Rectal exam not performed since no symptoms indicated blood loss. Extremities: No cyanosis or clubbing. Musculoskeletal: Normal range of motion, no swollen or erythematous joints. Neurological: Moves all 4 extremities. No myoclonus. TS Data Studies Completed and Pending Pending at discharge Category Date Time Status ABG FULL [Arterial Blood Gas Full] Routine Lab 02/22/22 19:23 Ordered Blood Culture Stat Lab 02/22/22 19:15 Results Drug Screen, Urine Stat Lab 02/21/22 14:44 Uncollected Respiratory Panel 2 Routine Lab 02/22/22 19:22 Ordered Urinalysis Stat Lab 02/21/22 14:44 Uncollected Urine Culture Stat Lab 02/22/22 20:05 Results Completed Studies During Hospitalization Category Date Time Status CT head wo con* [id number] Routine Cat Scan 02/22/22 13:48 Completed CXRP [XR chest 1V portable [id number]] Routine Exams 02/22/22 18:49 [place] [id number] Routine Ultrasound 02/23/22 23:51 Completed CV. echo complete* [id number] Routine Ultrasound 02/22/22 21:55 [place] liver [id number] Routine Ultrasound 02/22/22 18:47 Completed Laboratory Last Values WBC 11.2 10^3/uL (4.0-10.0) H 02/23/22 03:07 RBC 5.75 10^6/uL (4.1-5.3) H 02/23/22 03:07 Hgb 16.5 g/dL (11.7-16.6) 02/23/22 03:07 Hct 51.6 % (42.0-52.0) 02/23/22 03:07 MCV 89.7 fl (80-94) 02/23/22 03:07 MCH 28.7 pg (28.0-34.0) 02/23/22 03:07 MCHC 32.0 g/dL (30.0-36.0) 02/23/22 03:07 RDW 16.1 % (12.1-15.1) H 02/23/22 03:07 Plt Count 451 10^3/cmm (130-400) H 02/23/22 03:07 MPV 10.3 fL (7.4-10.4) 02/23/22 03:07 Neut % (Auto) 66.0 % 02/23/22 03:07 Lymph % (Auto) 24.4 % 02/23/22 03:07 Brooke % (Auto) 7.7 % 02/23/22 03:07 Eos % (Auto) 0.7 % 02/23/22 03:07 Baso % (Auto) 0.8 % 02/23/22 03:07 Neut # (Auto) 7.40 10^3/uL (1.8-7.7) 02/23/22 03:07 Lymph # (Auto) 2.7 10^3/uL (0.8-4.8) 02/23/22 03:07 Brooke # (Auto) 0.9 10^3/uL (0.2-0.9) 02/23/22 03:07 Eos # (Auto) 0.1 10^3/uL (0.0-0.8) 02/23/22 03:07 Baso # (Auto) 0.1 10^3/uL (0.0-0.1) 02/23/22 03:07 Nucleated RBC % (auto) 0 % 02/23/22 03:07 Nucleated RBCs # 0.0 /100WBC 02/23/22 03:07 D-Dimer 1.00 ug/mIFEU (0-0.59) H 02/22/22 19:26 Specimen Type Arterial 02/22/22 21:40 Sample Site Radial, left 02/22/22 21:40 ABG pH 7.46 (7.35-7.45) H 02/22/22 21:40 ABG pCO2 33.7 mmHg (35-45) L 02/22/22 21:40 ABG pO2 59.6 mmHg (80.0-100.0) L 02/22/22 21:40 ABG HCO3 24.0 mmol/L (22-26) 02/22/22 21:40 ABG Base Excess 0.8 mmol/L (-2.0-2.0) 02/22/22 21:40 Masood Test Pos 02/22/22 21:40 Hematocrit 49.0 % (42-52) 02/22/22 21:40 O2 Delivery Device Room air 02/22/22 21:40 Raw Silk Grader ID [email or web address] 02/22/22 21:40 Sodium 138 mmol/L (136-145) 02/23/22 03:07 Potassium 4.4 mmol/L (3.5-5.1) 02/23/22 03:07 Chloride 102 mmol/L (98-107) 02/23/22 03:07 Carbon Dioxide 21 mmol/L (22-29) L 02/23/22 03:07 Anion Gap 19.4 (5-19) H 02/23/22 03:07 BUN 18 mg/dL (6-20) 02/23/22 03:07 Creatinine 0.8 mg/dL (0.7-1.2) 02/23/22 03:07 GFR Calculation 108.8 mL/min (90-130) 02/23/22 03:07 Glucose 72 mg/dL (65-115) 02/23/22 03:07 Calculated Osmolality 286 mOsm/kg (285-295) 02/23/22 03:07 Lactate 2.2 mmol/L (0.5-2.2) 02/23/22 03:07 Calcium 8.9 mg/dL (8.5-10.5) 02/23/22 03:07 Magnesium 2.1 mg/dL (1.7-2.3) 02/23/22 03:07 Total Bilirubin 1.1 mg/dL (0.15-1.2) 02/23/22 03:07 AST 137 U/L (0-40) H 02/23/22 03:07 ALT 210 U/L (0-41) H 02/23/22 03:07 Alkaline Phosphatase 160 U/L (40-130) H 02/23/22 03:07 Ammonia 28 umol/L (16-60) 02/22/22 20:50 Creatine Kinase 209 U/L (39-308) 02/22/22 22:38 Troponin T Gen 5 ng/L Cancelled 02/23/22 03:07 Troponin T Baseline 399 ng/L (0-15) H* 02/22/22 20:50 Troponin T 120 Minute 418.7 ng/L (0-15) H 02/22/22 22:38 Delta Troponin T 19.7 ABS# (0-10) H* 02/22/22 22:38 Troponin T Hi Sens 6Hr 416.0 ng/L (0-15) H 02/23/22 03:07 Troponin T Hi Sens 6Hr Delta 17.0 ng/L (0-12) H* 02/23/22 03:07 C-Reactive Protein 17.3 mg/L (0.0-4.9) H 02/22/22 22:38 NT-Pro-B Natriuret Pep 46260 pg/mL (0-125) H 02/22/22 19:12 Total Protein 5.9 g/dL (6.6-8.7) L 02/23/22 03:07 Albumin 3.5 g/dL (3.5-5.2) 02/23/22 03:07 Globulin 2.4 g/dL (1.3-4.6) 02/23/22 03:07 Lipase 17 U/L (13-60) 02/21/22 15:05 Procalcitonin 0.19 ng/mL (0-0.5) 02/22/22 22:38 TSH 2.30 uIU/mL (0.27-4.20) 02/22/22 19:12 Salicylates < 0.3 mg/dL (3-10) L 02/21/22 15:05 Urine Opiates Screen Negative ng/mL (Negative) 02/22/22 17:21 Acetaminophen < 5.0 ug/mL (10-30) L 02/21/22 15:05 Ur Barbiturates Screen Negative ng/mL (Negative) 02/22/22 17:21 Ur Phencyclidine Scrn Negative ng/mL (Negative) 02/22/22 17:21 Ur Amphetamines Screen Positive ng/mL (Negative) H 02/22/22 17:21 U Benzodiazepines Scrn Positive ng/mL (Negative) H 02/22/22 17:21 Urine Cocaine Screen Negative ng/mL (Negative) 02/22/22 17:21 U Marijuana (THC) Screen Positive ng/mL (Negative) H 02/22/22 17:21 Ethyl Alcohol < 10 mg/dL (0-10) 02/22/22 22:38 Hepatitis A IgM Ab Non-reactive (Nonreactive) 02/22/22 19:12 Hep Bs Antigen Non-reactive (Nonreactive) 02/22/22 19:12 Hep Bs Antibody 18.9 (11.5-1000) 02/22/22 19:12 Hep B Core Total Ab Non-reactive (Nonreactive) 02/22/22 19:12 Hepatitis C Antibody Non-reactive (Nonreactive) 02/22/22 19:12 HIV 1&2 Ab & HIV 1 Ag Non-reactive (Non-Reactiv) 02/22/22 22:38 HIV 1&2 Antibody Non-reactive (Non-Reactiv) 02/22/22 22:[address] 02/22/22 13:48 IMPRESSION: 1. No evidence of intracranial hemorrhage or mass effect. 2. Normal montemayor-white differentiation. 3. Mild mucosal thickening in the RIGHT frontoethmoidal recess and RIGHT maxillary sinus. Mild mucosal thickening ethmoid air cells. 4. No acute intracranial findings. Liver Ultrasound 02/22/22 18:47 IMPRESSION: Normal RIGHT upper quadrant ultrasound. Mild cardiac enlargement. Chest X-Ray 02/22/22 18:49 IMPRESSION: Cardiomegaly with pulmonary edema. Multilobar pneumonia is considered less likely. Recent Clincial Data Last Vital Signs Temp 98.1 F 02/24/22 05:20 Pulse 101 H 02/24/22 13:45 Resp 20 H 02/24/22 13:45 BP 120/95 02/24/22 14:10 Pulse Ox 100 02/24/22 10:20 O2 Del Method 02/24/22 10:01 Vital Signs Temp Pulse Resp BP Pulse Ox O2 Del Method 02/24/22 14:10 120/95 02/24/22 14:05 120/95 02/24/22 14:00 120/95 02/24/22 13:55 120/95 02/24/22 13:50 120/95 02/24/22 13:45 101 H 20 H 120/95 02/24/22 13:40 89 21 H 120/95 02/24/22 13:35 92 19 H 120/95 02/24/22 13:30 110 H 21 H 120/95 02/24/22 13:25 98 22 H 120/95 02/24/22 13:20 96 20 H 120/95 02/24/22 13:15 103 H 24 H 120/95 02/24/22 13:10 98 21 H 120/95 02/24/22 13:05 101 H 18 120/95 02/24/22 13:00 90 19 H 120/95 02/24/22 12:55 91 21 H 120/95 02/24/22 12:50 104 H 22 H 120/95 02/24/22 12:45 112 H 22 H 120/95 02/24/22 12:40 103 H 14 120/95 02/24/22 12:35 107 H 24 H 120/95 02/24/22 12:30 81 18 120/95 02/24/22 12:25 94 23 H 120/95 02/24/22 12:20 94 13 120/95 02/24/22 12:15 107 H 26 H 02/24/22 12:10 83 10 L 02/24/22 12:05 101 H 21 H 02/24/22 12:00 87 19 H 113/88 02/24/22 11:55 103 H 23 H 113/88 02/24/22 11:50 84 11 L 113/88 02/24/22 11:45 86 11 L 113/88 02/24/22 11:40 80 17 113/88 02/24/22 11:35 92 22 H 113/88 02/24/22 11:30 113 H 22 H 113/88 02/24/22 11:25 85 5 L 113/88 02/24/22 11:20 81 20 H 113/88 02/24/22 11:15 110 H 19 H 113/88 02/24/22 11:10 91 15 113/88 02/24/22 11:05 85 7 L 113/88 02/24/22 11:00 78 19 H 113/88 02/24/22 10:55 113/88 02/24/22 10:50 113/88 02/24/22 10:45 113/88 02/24/22 10:40 113/88 02/24/22 10:35 113/88 02/24/22 10:30 113/88 02/24/22 10:25 113/88 02/24/22 10:20 78 10 L 113/88 100 02/24/22 10:15 108 H 19 H 113/88 96 02/24/22 10:10 101 H 20 H 113/88 97 02/24/22 10:05 87 13 113/88 99 02/24/22 10:01 89 16 97 Room Air 02/24/22 04:00 72 17 111/76 02/24/22 05:25 83 02/24/22 05:20 98.1 F Room Air 02/24/22 03:32 98 F Intake & Output/Weight 02/22/22 02/23/22 02/24/22 02/25/22 06:59 06:59 06:59 06:59 Intake Total 200 / 200 890 / 890 Output Total 400 / 400 1750 / 1750 Balance -200 / -200 -860 / -860 Weight 79.832 kg Vitals Last Vital Signs Temp 98.1 F 02/24/22 05:20 Pulse 101 H 02/24/22 13:45 Resp 20 H 02/24/22 13:45 BP 120/95 02/24/22 14:10 Pulse Ox 100 02/24/22 10:20 O2 Del Method 02/24/22 10:01 TS Medications Medications Acetaminophen (Acetaminophen 325 Mg Tablet) 650 mg PO Q4H PRN PRN Reason: MILD PAIN Albuterol Sulfate (Albuterol 2.5 Mg/3 Ml Neb) 2.5 mg INHALATION Q4H.RESPIRATORY PRN PRN Reason: SHORTNESS OF BREATH Aspirin (Aspirin 81 Mg Ec Tablet) 81 mg PO DAILY [facility] Last Admin: 02/24/22 08:50 Dose: 81 mg Atorvastatin Calcium (Atorvastatin 40 Mg Tablet) 40 mg PO BEDTIME [facility] Last Admin: 02/23/22 19:05 Dose: 40 mg Benztropine Mesylate (Benztropine 1 Mg Tablet) 1 mg PO BID PRN PRN Reason: Mild Extrapyramidal symptoms Camphor/Menthol/Phenol (Blistex Lip Oint 7 Gm Tube) 1 applic TOPICAL Q1H PRN PRN Reason: DRYNESS Diphenhydramine HCl (Diphenhydramine 50 Mg/Ml Sdv 1ml) 50 mg IM ONCE PRN PRN Reason: Severe Extrapyramidal Symptoms Diphenhydramine HCl (Diphenhydramine 50 Mg/Ml Sdv 1ml) 50 mg IM Q4H PRN PRN Reason: Severe Aggression Diphenhydramine HCl (Diphenhydramine 50 Mg Capsule) 50 mg PO Q4H PRN PRN Reason: AGITATION Last Admin: 02/22/22 12:34 Dose: 50 mg Enoxaparin Sodium (Enoxaparin 80 Mg/0.8 Ml Syringe) 80 mg SUBCUT Q12H [facility] Last Admin: 02/24/22 11:59 Dose: 80 mg Furosemide (Furosemide 40 Mg Tablet) 80 mg PO DAILY [facility] Last Admin: 02/24/22 08:50 Dose: 80 mg Haloperidol (Haloperidol 5 Mg Tablet) 5 mg PO Q4H PRN PRN Reason: AGITATION Last Admin: 02/22/22 12:33 Dose: 5 mg Haloperidol Lactate (Haloperidol Inj 5 Mg/Ml Inj 1 Ml) 5 mg IM Q4H PRN PRN Reason: Severe Aggression Hydroxyzine Pamoate (Hydroxyzine 25 Mg Capsule) 50 mg PO Q6H PRN PRN Reason: ANXIETY Lisinopril (Lisinopril 5 Mg Tablet) 2.5 mg PO BEDTIME [facility] Last Admin: 02/23/22 19:05 Dose: 2.5 mg Loperamide HCl (Loperamide 2 Mg Capsule) 2 mg PO Q6H PRN PRN Reason: DIARRHEA Lorazepam (Lorazepam 2 Mg/Ml Inj 1 Ml) 2 mg IM Q4H PRN PRN Reason: Severe Aggression Lorazepam (Lorazepam 2 Mg Tablet) 2 mg PO Q4H PRN PRN Reason: ANXIETY Last Admin: 02/24/22 03:27 Dose: 2 mg Metoprolol Succinate (Metoprolol Succinate Er (24 Hr) 25 Mg Tablet) 12.5 mg PO BEDTIME [facility] Last Admin: 02/23/22 19:05 Dose: 12.5 mg Nicotine (Nicotine 21 Mg Patch) 1 patch TRANSDERMA DAILY PRN PRN Reason: NICOTINE WITHDRAWAL Nicotine Polacrilex (Nicotine 2 Mg Gum) 2 mg BUCCAL Q2H PRN PRN Reason: NICOTINE WITHDRAWAL Olanzapine (Olanzapine 5 Mg Odt) 5 mg PO Q4H PRN PRN Reason: Agitation/Psychosis Ondansetron HCl (Ondansetron 4 Mg Tablet) 4 mg PO Q6H PRN PRN Reason: NAUSEA AND VOMITING Potassium Chloride (Potassium Chloride Er 20 Meq Tablet) 40 meq PO DAILY [facility] Last Admin: 02/24/22 08:51 Dose: 40 meq Quetiapine Fumarate (Quetiapine 100 Mg Tablet) 100 mg PO BEDTIME [facility]ANYA Last Admin: 02/23/22 19:05 Dose: 100 mg Sertraline HCl (Sertraline 50 Mg Tablet) 50 mg PO BEDTIME [facility] Last Admin: 02/23/22 19:05 Dose: 50 mg Trazodone HCl (Trazodone 50 Mg Tablet) 50 mg PO BEDTIME PRN PRN Reason: SLEEP Discontinued Medications Heparin Sodium (Porcine) (Heparin 5,000 Unit/Ml Inj 1 Ml) 0 unit IV PRN PRN; Protocol PRN Reason: Heparin weight-base protocol Heparin Sodium/Sodium Chloride (Heparin Drip) 25,000 unit in 500 mls @ 0 mls/hr IV .Q0M SARANYA; Protocol Ibuprofen (Ibuprofen 600 Mg Tablet) 600 mg PO Q6H PRN PRN Reason: MODERATE PAIN Lorazepam (Lorazepam 2 Mg Tablet) 2 mg PO ONCE ONE Stop: 02/21/22 14:51 Last Admin: 02/21/22 15:31 Dose: 2 mg Allergies No Known Allergies Allergy (Unverified 02/21/22 15:30) Home Medications furosemide 40 mg tablet 80 mg PO DAILY 02/21/22 [History Confirmed 02/21/22] lisinopril 2.5 mg tablet 2.5 mg PO BEDTIME 02/21/22 [History Confirmed 02/21/22] metoprolol succinate 25 mg tablet,extended release 24 hr 12.5 mg PO BEDTIME 02/21/22 [History Confirmed 02/21/22] potassium chloride 20 mEq tablet,extended release(part/cryst) 40 meq PO DAILY 02/21/22 [History Confirmed 02/21/22] quetiapine 100 mg tablet 100 mg PO BEDTIME 02/21/22 [History Confirmed 02/21/22] sertraline 50 mg tablet 50 mg PO BEDTIME 02/21/22 [History Confirmed 02/21/22] Discharge Plan Discharge Patient Disposition: Home Condition: Stable Prescriptions: Continued furosemide 40 mg tablet 80 mg PO DAILY quetiapine 100 mg tablet 100 mg PO BEDTIME potassium chloride 20 mEq tablet,ER particles/crystals 40 meq PO DAILY metoprolol succinate 25 mg tablet extended release 24 hr 12.5 mg PO BEDTIME sertraline 50 mg tablet 50 mg PO BEDTIME lisinopril 2.5 mg tablet 2.5 mg PO BEDTIME Discharge Orders: Discharge Order (Routine); Ordered 02/24/22 Ordered By: Sadi Fuentes Discharge Diet: Low Salt Patient Instructions: Opioid Safety Transfer Attestations Time Spent in Transfer Care: greater than 30 min Quality Metrics Clinical Quality Measures [ No reported AMI, CVA or VTE this stay] Coding Level of Care Code Acute Code for g Fwd Diagnoses Cardiomyopathy I42.9 Altered mental status R41.82 Acute psychosis F23 Suicidal ideation R45.851 Drug-induced psychotic disorder F19.959 Elevated troponin R77.8 Methamphetamine abuse F15.10
--- NOTE | 2022-02-24 16:51 | W.PM.NPUPNS ---
Subjective NPU Subjective: Patient presented today as communicative as he has been during this hospitalization. He was able to discuss the incident leading to his hospitalization and does endorse that he made a comment to the police about killing himself and getting a gun. He denies that he feels that way now and acknowledges that that is not a bright thing to say to law enforcement who are doing a welfare check. He gave no explanation for why he responded that way and we discussed the likelihood of transfer back to the neuropsychiatric unit today for a few days with his 96-hour hold ending on Saturday. Mental Status Exam MSE Comments: This is a slender diminutive white male in hospital scrubs with poor grooming and improving occasional eye contact. No abnormal movements except for psychomotor retardation. More cooperative with exam in mild distress. Speech was limited and decreased rate and volume. Mood described as okay, affect still showed. Thought process linear and more organized. Thought content: Patient suicidal or homicidal ideation but does report that he did make lethal comments to the police, there were no delusions reported or noted, he denied auditory or visual hallucinations.. Attention and concentration are improving and memory was more reliable but none were formally tested. He was alert and oriented x3.. Insight and judgment and impulse control appear improving. Vitals/I&O/Wt Last Vital Signs Temp 98.3 F 02/24/22 21:09 Pulse 98 02/24/22 21:09 Resp 18 02/24/22 21:09 BP 118/95 02/24/22 21:09 Pulse Ox 97 02/24/22 21:09 O2 Del Method 02/24/22 10:01 Data NPU 02/23/22 03:07 02/23/22 03:07 Micro: Microbiology 02/23/22 02:00 Urine Culture - Preliminary Urine,Voided Microbiology 02/23/22 02:00 Urine,Voided Urine Culture - Preliminary A&P Assessment and plan (1) Acute psychosis: (2) Suicidal ideation: Plan This is a 36-year old white male with a significant medical history and possible addiction history who presents on psychiatric medication but are not able to communicate exactly what led to his 96-hour hold and confused state. Plan: 1.? Continue current medication.? 2.? Continue every 15 minute checks for safety. 3.? Encourage individual, group and milieu therapies. 4.? Encourage sober living treatment after discharge at the highest level of care to which he is willing to commit. 5. Transfer back to the neuropsychiatric unit. Involuntary Hold Information 96 Hour Hold: 96 Hour Involuntary Admission: Yes 96 Hour Hold Ending Date: 02/27/22 96 Hour Hold Ending Time: 15:42 Attestations NPU Medical Necessity Statement*: Inpatient hospitalization is medically necessary and the clinically appropriate intervention at this time.? We will monitor/initiate medications and titrate and make changes as indicated.? Likely length of stay 2-4 days. Coding Level of Care Code Acute Code for Chg Fwd Diagnoses Acute psychosis F23 Suicidal ideation R45.851
[2022-02-24] MEDS: metoprolol succinate ER (24 HR) 25 mg Tablet 12.5 MG PO (20:47)
[2022-02-24] MEDS: quetiapine 100 mg Tablet PO (20:48)
[2022-02-24] MEDS: atorvastatin 40 mg Tablet PO (20:48)
[2022-02-24] MEDS: lisinopril 5 mg Tablet 2.5 MG PO (20:48)
[2022-02-24] MEDS: sertraline 50 mg Tablet PO (20:48)
--- NOTE | 2022-02-25 07:20 | W.PM.NPUPNS ---
Subjective NPU Subjective: Patient presented today with chest pain leading to a rapid response being called. He denied any issues with his medications and is hopeful he could leave by the end of his hold. Mental Status Exam MSE Comments: This is a slender diminutive white male in hospital scrubs with adequate grooming and improving eye contact. No abnormal movements except for psychomotor retardation. Cooperative with exam in significant distress due to chest pain. Speech was limited and decreased rate and volume. Mood described as anxious, affect congruent. Thought process linear and more organized. Thought content: Patient suicidal or homicidal ideation but does report that he did make lethal comments to the police, there were no delusions reported or noted, he denied auditory or visual hallucinations.. Attention and concentration are improving and memory was more reliable but none were formally tested. He was alert and oriented x3.. Insight and judgment and impulse control appear improving. Vitals/I&O/Wt Last Vital Signs Temp 98.3 F 02/24/22 21:09 Pulse 98 02/24/22 21:09 Resp 18 02/24/22 21:09 BP 118/95 02/24/22 21:09 Pulse Ox 97 02/24/22 21:09 O2 Del Method 02/24/22 10:01 Data NPU 02/23/22 03:07 02/23/22 03:07 Micro: Microbiology 02/23/22 02:00 Urine Culture - Preliminary Urine,Voided Microbiology 02/23/22 02:00 Urine,Voided Urine Culture - Preliminary A&P Assessment and plan (1) Acute psychosis: (2) Suicidal ideation: Plan This is a 36-year old white male with a significant medical history and possible addiction history who presents on psychiatric medication but are not able to communicate exactly what led to his 96-hour hold and confused state. Plan: 1.? Continue current medication.? 2.? Continue every 15 minute checks for safety. 3.? Encourage individual, group and milieu therapies. 4.? Encourage sober living treatment after discharge at the highest level of care to which he is willing to commit. Involuntary Hold Information 96 Hour Hold: 96 Hour Involuntary Admission: Yes 96 Hour Hold Ending Date: 02/27/22 96 Hour Hold Ending Time: 15:42 Attestations NPU Medical Necessity Statement*: Inpatient hospitalization is medically necessary and the clinically appropriate intervention at this time.? We will monitor/initiate medications and titrate and make changes as indicated.? Likely length of stay 1-3 days. Coding Level of Care Code Acute Code for Chg Fwd Diagnoses Acute psychosis F23 Suicidal ideation R45.851
[2022-02-25 08:00] VITALS: PULSE 109; RESP 18; O2SAT 97
[2022-02-25 08:03] VITALS: PULSE 109
--- NOTE | 2022-02-25 08:03 | ECG_ITS ---
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 Measurements Intervals [place] Rate: 109 P: 65 [place]: 140 QRS: -63 QRSD: 90 T: 104 QT: 332 QTc: 447 Interpretive Statements SINUS TACHYCARDIA LEFT ATRIAL ENLARGEMENT [-0.15mV P-WAVE IN V1/V2] LEFT ANTERIOR FASCICULAR BLOCK [QRS AXIS <= -45, QR IN I, RS IN II] POSSIBLE ANTERIOR MYOCARDIAL INFARCTION , OF INDETERMINATE AGE [30 ms Q WAVE IN V3/V4, OR R < 0.2 mV IN V4] MODERATE T-WAVE ABNORMALITY, CONSIDER LATERAL ISCHEMIA [-0.1+ mV T-WAVE IN I/aVL/V5/V6] Compared to ECG 02/23/2022 03:00:21 Left anterior fascicular block now present Myocardial infarct finding now present Possible ischemia now present Sinus rhythm no longer present T-wave abnormality still present Electronically Signed On 02-25-2022 10:08:53 SPRING COILING MACHINE SETTER by Jt Haji M.D. [email or web address]/store/[id number]
[2022-02-25] MEDS: nitroglycerin 0.4 mg sublingual Tablet SUBLINGUAL (08:31)
[2022-02-25] MEDS: LORazepam 2 mg Tablet PO (08:44)
--- NOTE | 2022-02-25 09:00 | PC.NURSE ---
Patient in dining area at approx. 0755; c/o chest pain; has a medical hx of CHF and heart conditions. Dr. Dowd notified; received order for EKG stat. Order placed and done and doctor viewed. stated to call rapid response to pt c/o chest pain. Received orders for stat labs for d- dimer and troponin level. Patient sitting in dining room; crash cart in place with O2 @ 2/NC placed; rapid response team present. patient removed oxygen.Vital signs 138/94-54-16 O2 sat 98% on room air. Received order for stat nitroglycerin 0.4mg sublingual and ativan 0.25 mg; given. See APR. Ativan 2mg pulled and d/t stat order; wasted 1.75mg per protocol. Patient stated he felt relief after taken nitroglycerin x1 dose. Nurse and staff assisted pt. to room and to bed. Nurse explained to patient to notify staff if pain persist and to move slowly when changing position due medication given. Pt. verbalized understanding. Monitoring.
[2022-02-25 09:17] LABS: D Dimer 1.29 ug/mIFEU (0-0.59)
[2022-02-25 09:37] LABS: Troponin T (5th) Once 249 ng/L (0-15)
--- NOTE | 2022-02-25 09:50 | PC.NURSE ---
Received call from lab; reported critical troponin level of [address] Mosquera notified and hospitalist, Dr. Fuentes notified. No new orders received. Nurse checked on patient; in bed resting no c/o pain voiced.
[2022-02-25] MEDS: isosorbide mononitrate ER 30 mg Tablet PO (09:54)
[2022-02-25] MEDS: potassium chloride ER 20 mEq Tablet 40 MEQ PO (09:55)
[2022-02-25] MEDS: aspirin 81 mg EC Tablet PO (09:55)
[2022-02-25] MEDS: nitroglycerin 0.4 mg sublingual Tablet (09:55)
[2022-02-25] MEDS: LORazepam 0.5 mg Tablet 0.25 MG PO (09:56)
--- NOTE | 2022-02-25 11:04 | PM.PN ---
Subjective Subjective: Responded overhead medical emergency in the NPU. Patient complaining of left-sided chest pain. After further interview he reports he has chronic left-sided chest pain that waxes and wanes. He contributed to his congestive heart failure. Vitals are normal. EKG negative for acute ischemic changes. Nitroglycerin administered with improvement in chest pain. D-dimer and troponin obtained. Troponin is elevated 249 which is lower than his prior troponin. Suspect chronic myocardial injury. He is not a candidate for cardiac catheterization due to his noncompliance should he need a cardiac stent placed. Noncompliance with antiplatelet therapy results in in-stent rethrombosis which can cause major complications and . We will attempt continue medical management. Discussed starting long-acting nitrate with patient and he is in agreement. Medications: Reviewed: Yes Vitals/I&O/Wt Last Vital Signs Temp 98.3 F 02/24/22 21:09 Pulse 109 H 02/25/22 08:03 Resp 18 02/25/22 08:00 BP 118/95 02/24/22 21:09 Pulse Ox 97 02/25/22 08:00 O2 Del Method 02/25/22 08:00 Physical Exam Narrative: General: Patient is awake. Sitting in chair in moderate distress. Frail-appearing. Head: Normocephalic. Atraumatic. Neck: No JVD. Cardiovascular: RRR. No gallops. No murmurs. Trace lower extremity edema Lungs: Clear to auscultation, no use of accessory muscles, no crackles or wheezes. Skin: No jaundice. No rashes. Abdomen: Normal bowel sounds, abdomen soft and nontender. Genito Urinary: Genital exam not performed since complaints not related. Rectal: Rectal exam not performed since no symptoms indicated blood loss. Extremities: No cyanosis or clubbing. Musculoskeletal: Normal range of motion, no swollen or erythematous joints. Neurological: Moves all 4 extremities. No myoclonus. 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 Critical Care Time: The high probability of a clinically significant, sudden or life threatening deterioration of the patient's cardiac system(s) required my full and direct attention, intervention and personal management. The critical care time is as shown. This time is in addition to time spent performing any reported procedures but includes the following: [x] Responding to overhead medical emergency [x] Data and vital sign review and interpretation [x] Patient assessment, examination and intervention [x] Documentation [x] Medication orders and management Coding Level of Care Code [facility] Diagn[facility] Chest pain R07.9 Cardiomyopathy I42.9 Suicidal ideation R45.851 Drug-induced psychotic disorder F19.959 Methamphetamine abuse F15.10
[2022-02-25 14:00] VITALS: BP 103/64; PULSE 86; RESP 17; TEMP 36.6; O2SAT 97
[2022-02-25] MEDS: hyDROXYzine 25 mg Capsule 50 MG PO (16:16)
--- NOTE | 2022-02-25 18:39 | PC.NURSE ---
Patient in room at present. Ate 100 of meal tonight. No c/o chest pain voiced. Denies vertigo or n/v.
[2022-02-25 20:11] VITALS: PULSE 99; RESP 18; O2SAT 95
[2022-02-25] MEDS: sertraline 50 mg Tablet PO (20:18)
[2022-02-25] MEDS: metoprolol succinate ER (24 HR) 25 mg Tablet 12.5 MG PO (20:18)
[2022-02-25] MEDS: lisinopril 5 mg Tablet 2.5 MG PO (20:18)
[2022-02-25] MEDS: atorvastatin 40 mg Tablet PO (20:18)
[2022-02-25] MEDS: quetiapine 100 mg Tablet PO (20:18)
[2022-02-25 21:26] VITALS: BP 132/94; PULSE 53; RESP 18; TEMP 36.6; O2SAT 98
[2022-02-26] VITALS (15 sets, daily range): BP systolic 80–126; BP diastolic 47–82; PULSE 66–110; RESP 14–22; TEMP 36.3–36.9; O2SAT 95–98
[2022-02-26] MEDS: nitroglycerin 0.4 mg sublingual Tablet (01:47)
[2022-02-26] MEDS: nitroglycerin 0.4 mg sublingual Tablet SUBLINGUAL (01:54)
[2022-02-26] MEDS: LORazepam 2 mg Tablet PO (02:05)
--- NOTE | 2022-02-26 02:13 | ECG_ITS ---
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 Measurements Intervals [place] Rate: 77 P: 37 [place]: 161 QRS: 41 QRSD: 94 T: 224 QT: 434 QTc: 492 Interpretive Statements SINUS RHYTHM LOW QRS VOLTAGE IN EXTREMITY LEADS [QRS DEFLECTION < 0.5 mV IN LIMB LEADS] MARKED T-WAVE ABNORMALITY, CONSIDER LATERAL ISCHEMIA [-0.5+ mV T-WAVE IN I/aVL/V5/V6] MODERATE T-WAVE ABNORMALITY, CONSIDER INFERIOR ISCHEMIA [-0.1+ mV T-WAVE IN II/aVF] Compared to ECG 02/25/2022 08:03:43 Low QRS voltage now present Sinus tachycardia no longer present Atrial abnormality no longer present Left anterior fascicular block no longer present Myocardial infarct finding no longer present T-wave abnormality still present Possible ischemia still present Electronically Signed On 02-26-2022 7:12:54 PHD INTERNSHIP by Jt Haji M.D. [email or web address]/store/[id number]
--- NOTE | 2022-02-26 02:20 | ECG_ITS ---
[facility] Test Date: 2022-02-26 Pat Name: Jose Angel Madrigal Department: Room: 154 Gender: Male Rn Practitioner: : 1985 Requested By: Ventura Dowd Order Number: [id number] Dena MD: Jt Haji M.D. Measurements Intervals [employer] Rate: 66 P: 35 [place]: 156 QRS: 40 QRSD: 93 T: 218 QT: 448 QTc: 473 Interpretive Statements SINUS RHYTHM LOW QRS VOLTAGE IN EXTREMITY LEADS [QRS DEFLECTION < 0.5 mV IN LIMB LEADS] MARKED T-WAVE ABNORMALITY, CONSIDER LATERAL ISCHEMIA [-0.5+ mV T-WAVE IN I/aVL/V5/V6] MODERATE T-WAVE ABNORMALITY, CONSIDER INFERIOR ISCHEMIA [-0.1+ mV T-WAVE IN II/aVF] Compared to ECG 02/26/2022 02:34:06 No significant changes Electronically Signed On 02-26-2022 7:13:02 DIRECTOR ONLINE MARKETING by Jt Haji M.D. [email or web address]vesTrueDemand Softwaremarymount hospitalBabyJunk, Inc/store/[id number]
--- NOTE | 2022-02-26 02:40 | PC.NURSE ---
PATIENT CAME TO NURSES STATION AT 01:42 C/O CHEST PAIN (11/20). AT 01:45 PATIENT GIVEN NITRO 0.4MG SL. BP 104/73, P 91, R 18, O2 98% ON ROOM AIR. PATIENT STATED MINIMAL RELIEF. AT 01:52 ADDITIONAL NITRO 0.4MG SL ADMINISTERED. PATIENT STATED A LITTLE BETTER (08/20) BP DROPPED TO 80/54. AT 02:05 2MG ATAVAN GIVEN AND PANMAN NOTIFIED. SHE ADVISED TO NOTIFY HOSPITALIST DR. MENDIOLA. CALLED DR. MENDIOLA, INFORMED HIM OF SITUATION , ORDERS FOR STAT EKG AND LABS (TROPONIN LEVEL)AND 15MG MORPHINE IR PO. AT 0215 PATIENT WAS RESTING COMFORTABLY EKG WAS DONE AND HIS BP CAME UP TO 95/62. P 70. PATIENT WAS NO LONGER C/O ACUTE PAIN AND BECAUSE HIS BP WAS STILL SOFT SO MORPHINE WAS NOT GIVEN. PATIENT CONTINUED TO REST COMFORTABLY WITH EYES CLOSED UNDER NO RESPIRATORY DISTRESS. AT 02:45 HIS BP WAS 111/82, P74 RESTING WITH EYES CLOSED.BASE LINE TROPONIN 604.
[2022-02-26 03:55] LABS: Troponin(5th) Baseline 604 ng/L (0-15)
--- NOTE | 2022-02-26 04:13 | ECG_ITS ---
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 Measurements Intervals [place] Rate: 79 P: 32 [place]: 160 QRS: 41 QRSD: 93 T: 212 QT: 414 QTc: 475 Interpretive Statements SINUS RHYTHM POSSIBLE LEFT ATRIAL ENLARGEMENT [-0.1mV P-WAVE IN V1/V2] LOW QRS VOLTAGE IN EXTREMITY LEADS [QRS DEFLECTION < 0.5 mV IN LIMB LEADS] MODERATE T-WAVE ABNORMALITY, CONSIDER LATERAL ISCHEMIA [-0.1+ mV T-WAVE IN I/aVL/V5/V6] Compared to ECG 02/26/2022 02:35:01 No significant changes Electronically Signed On 02-26-2022 7:18:24 CABLE MOCK UP ASSEMBLER by Jt Haji M.D. [id number]
[2022-02-26] MEDS: clopidogrel 75 mg Tablet PO (06:17)
[2022-02-26 06:30] LABS: Troponin 5 2HR 603.6 ng/L (0-15); Troponin 5 2HR Delta -0.4 ABS# (0-10)
--- NOTE | 2022-02-26 06:30 | PC.NURSE ---
Critical lab: Silvana 603.[address] Car.
[2022-02-26] MEDS: aspirin 81 mg EC Tablet PO (08:26)
[2022-02-26] MEDS: isosorbide mononitrate ER 30 mg Tablet PO (08:26)
[2022-02-26] MEDS: potassium chloride ER 20 mEq Tablet 40 MEQ PO (08:26)
--- NOTE | 2022-02-26 09:28 | ECG_ITS ---
[facility] Test Date: 2022-02-26 Pat Name: Jose Angel Madrigal Department: Room: 150 Gender: Male Education Director: : 1985 Requested By: Nuno Car Order Number: [id number] Dena MD: Mike Monroe M.D. Measurements Intervals [place] Rate: 81 P: 48 [place]: 150 QRS: 6 QRSD: 95 T: 192 QT: 403 QTc: 468 Interpretive Statements SINUS RHYTHM POSSIBLE LEFT ATRIAL ENLARGEMENT [-0.1mV P-WAVE IN V1/V2] MODERATE T-WAVE ABNORMALITY, CONSIDER LATERAL ISCHEMIA [-0.1+ mV T-WAVE IN I/aVL/V5/V6] MODERATE T-WAVE ABNORMALITY, CONSIDER INFERIOR ISCHEMIA [-0.1+ mV T-WAVE IN II/aVF] Compared to ECG 02/26/2022 04:21:48 No significant changes Electronically Signed On 02-26-2022 9:58:18 ENVIRONMENTAL FIELD TEAM MEMBER by Mike Monroe M.D. [email or web address].[employer]/store/[id number]
[2022-02-26 09:41] LABS: Basophils % 0.5 %; Eosinophils % 0.5 %; Hematocrit 46.2 % (42.0-52.0); Hemoglobin 14.7 g/dL (11.7-16.6); Lymphocytes # 1.6 10^3/uL (0.8-4.8); Lymphocytes % 19.5 %; Mean Corpuscular HGB Conc 31.8 g/dL (30.0-36.0); Mean Corpuscular Hemoglobin 29.1 pg (28.0-34.0); Mean Corpuscular Volume 91.5 fl (80-94); Mean Platelet Volume 9.7 fL (7.4-10.4); Monocytes # 0.6 10^3/uL (0.2-0.9); Monocytes % 7.6 %; Neutrophils # 6.02 10^3/uL (1.8-7.7); Neutrophils % 71.8 %; Nucleated Red Blood Cells % 0 %; Platelet Count 431 10^3/cmm (130-400); Red Blood Count 5.05 10^6/uL (4.1-5.3); Red Cell Distribution Width 16.2 % (12.1-15.1); White Blood Count 8.4 10^3/uL (4.0-10.0)
[2022-02-26 10:03] LABS: Alanine Aminotransferase 88 U/L (0-41); Albumin Level 3.4 g/dL (3.5-5.2); Alkaline Phosphatase 136 U/L (40-130); Anion Gap 12.9 (5-19); Aspartate Amino Transferase 55 U/L (0-40); Blood Urea Nitrogen 14 mg/dL (6-20); Calcium 9.4 mg/dL (8.5-10.5); Carbon Dioxide 26 mmol/L (22-29); Chloride 106 mmol/L (98-107); Globulin 2.4 g/dL (1.3-4.6); Glomerular Filtration Rate 108.8 mL/min (90-130); Glucose 101 mg/dL (65-115); Osmolality Calculated 291 mOsm/kg (285-295); Potassium 4.9 mmol/L (3.5-5.1); Sodium 140 mmol/L (136-145); Total Bilirubin 0.4 mg/dL (0.15-1.2); Total Protein 5.8 g/dL (6.6-8.7)
[2022-02-26 10:10] LABS: Troponin 5 6HR 584.1 ng/L (0-15); Troponin 5 6HR Delta -19.9 ng/L (0-12)
--- NOTE | 2022-02-26 12:13 | P.PN_ITS ---
Subjective Subjective: Patient was seen and examined this morning he was continued to complain of substernal chest pain, requiring sublingual nitro last night: Troponin trend done last night had shown: [id number]. Current plan is to put patient on ACS protocol, for next 48 hours and optimize medical management. Cardiology on board Medications: Reviewed: Yes Vitals/I&O/Wt Last Vital Signs Temp 97.4 F L 02/26/22 06:25 Pulse 110 H 02/26/22 08:00 Resp 18 02/26/22 08:00 BP 104/73 02/26/22 06:25 Pulse Ox 96 02/26/22 08:00 O2 Del Method 02/26/22 08:00 Physical Exam Const: COMMON NORMALS: patient oriented x3 HENMT: COMMON NORMALS: normocephalic and atraumatic HEAD & SCALP: normocep halic and atraumatic Resp: COMMON NORMALS: normal respiratory effort, No retractions, No use of accessory muscles and clear to auscultation bilaterally EFFORT & INSPECTION: Yes symmetric chest movement AUSCULTATION: clear to auscultation bilaterally Cardio: COMMON NORMALS: regular rate, regular rhythm, S1 normal heart sound present, S2 normal heart sound present, No gallops present (Cardio), No murmurs present (Cardio), No rub (Cardio) and Peripheral pulses 2+ throughout RATE: regular rate RHYTHM: regular rhythm HEART SOUNDS: S1 normal heart sound present and S2 normal heart sound present PERIPHERAL PULSES: Peripheral puls es 2+ throughout GI: COMMON NORMALS: Normal to inspection, nondistended, normoactive bowel sounds present, Soft to palpation, non-tender, No hepatosplenomegaly present and no masses AUSCULTATION: Yes normoactive bowel sounds PALPATION: Yes Soft to palpation and Yes No hepatosplenomegaly present RECTAL EXAM: Yes deferred Extremity: COMMON NORMALS: no clubbing, cyanosis or edema and no pedal edema Neuro: COMMON NORMALS: patient oriented x3 Data 02/26/22 09:30 02/26/22 09:30 Micro: Microbiology 02/23/22 02:00 Urine Culture - Final Urine,Voided A&P Assessment and plan (1) Altered mental status: Patient presented to the hospital with altered mental status. Likely secondary to drug use. Urine drug screen tested positive for amphetamines benzodiazepines and marijuana. Patient has multiple track robb over his body. He is currently awake and alert, appears to be in no obvious distress. He is coordinated, able to self-feed, he uses a urinal and using the bathroom independently today. He does not seem to be unsteady. (2) Acute psychosis: Likely secondary to drug use and underlying psych diagnosis. (3) NSTEMI (non-ST elevated myocardial infarction): Patient had complained of chest pain on and off to the n.p.o. staff. He really has not complained of chest pain since presenting to the ICU. Troponin series showing elevated serial troponins in the 350s range with delta of 17 and 19 at 2 and 6 hours respectively. Per his father patient was recently admitted at [facility] for what sounds like heart attack . It is unknown at this time whether he underwent a cardiac cath or not. Records have been requested. Last known EF is at 20%. For further cardiomyopathy was attributed to drug use. Patient is unwilling to engage in conversation with me at this time regarding his further care. He does not say yes or no or talk at all about possibility of cardiac interventions. He is willing to take medications. He is currently on aspirin, atorvastatin, metoprolol 12.5 mg p.o. daily and lisinopril 2.5 mg p.o. daily. Overnight orders for heparin drip was placed but for some reason this was not started. Reason is not known at this time. We will go ahead and start him on Lovenox 1 mg/kg subcutaneously every 12 hours for NSTEMI. Will await records. If he had a fairly recent cardiac cath, we may not need to proceed with any interventional procedures as of now. At any rate he is unwilling to engage in conversation to discuss further care. His family will be here this afternoon. (4) Cardiomyopathy: Last known EF of 20%. Awaiting echocardiogram. Attestations Medical Necessity Statement*: Patient is to be in hospital for management of NSTEMI. Coding Level of Care Code Acute Code for [facility] Fwd Exam Detailed Diagnoses Altered mental status R41.82 Acute psychosis F23 NSTEMI (non-ST elevated myocardial infarction) I21.4 Cardiomyopathy I42.9
--- NOTE | 2022-02-26 12:42 | W.PM.NPUPNS ---
Subjective NPU Subjective: Patient is a 36-year-old male admitted with vague suicidal ideation in the context of significant cardiac issues. The patient had elevated troponin today and reported that he simply wanted to get home and go home. He denied any thoughts of hurting himself or others and reported that he would be agreeable to a short 48-hour stay at the cardiac stabilization unit prior to going home. He had remained isolative on the milieu and did report having periods of acute chest pain which was medically managed. Mental Status Exam MSE Comments: This is a slender diminutive white male in hospital scrubs with adequate grooming and improving eye contact. No abnormal movements except for psychomotor retardation. Cooperative with exam in mild distress due to chest pain. Speech was productive with normal rate and volume. Mood described as anxious,His affect was mood congruent. Thought process linear and more organized. Thought content: Patient denies suicidal or homicidal ideation . Attention and concentration are improving and memory was more reliable but none were formally tested. He was alert and oriented x3.. Insight and judgment and impulse control appear improving. Vitals/I&O/Wt Last Vital Signs Temp 97.4 F L 02/26/22 06:25 Pulse 99 02/26/22 14:00 Resp 22 H 02/26/22 14:00 BP 115/72 02/26/22 14:00 Pulse Ox 98 02/26/22 14:00 O2 Del Method 02/26/22 14:00 Data NPU 02/26/22 09:30 02/26/22 09:30 Micro: Microbiology 02/23/22 02:00 Urine Culture - Final Urine,Voided Microbiology 02/23/22 02:00 Urine,Voided Urine Culture - Final A&P Assessment and plan (1) Acute psychosis: (2) Suicidal ideation: Plan This is a 36-year old white male with a significant medical history and possible addiction history who presents on psychiatric medication currently reporting no suicidal ideation Plan: 1.? Continue current medication, patient likely to go to CSU for 48 hours prior to likely discharge.? 2.? Continue every 15 minute checks for safety. 3.? Encourage individual, group and milieu therapies. 4.? Encourage sober living treatment after discharge at the highest level of care to which he is willing to commit. Involuntary Hold Information 96 Hour Hold: 96 Hour Involuntary Admission: Yes 96 Hour Hold Ending Date: 02/27/22 96 Hour Hold Ending Time: 15:42 Attestations NPU Medical Necessity Statement*: Inpatient hospitalization is medically necessary and the clinically appropriate intervention at this time.? We will monitor/initiate medications and titrate and make changes as indicated.? Likely length of stay 1-2 days. Coding Level of Care Code Established Pt Acute Code for Chg Fwd Patient Type Established History Problem Focused Exam Problem Focused Medical Decision Making Straight Forward Diagnoses Acute psychosis F23 Suicidal ideation R45.851
[2022-02-26] MEDS: enoxaparin 80 mg/0.8 mL Syringe SUBCUT ×2 (13:39→23:51)
--- NOTE | 2022-02-26 13:57 | PC.NURSE ---
report called to [facility], pt off unit at [id number]
--- NOTE | 2022-02-26 18:37 | P.PN_ITS ---
Subjective Subjective: Patient had chest pain episodes last night. Troponins were repeated and were high. Currently chest pain free. Vitals/I&O/Wt Last Vital Signs Temp 98.5 F 02/26/22 15:59 Pulse 99 02/26/22 15:59 Resp 14 02/26/22 15:59 BP 126/81 02/26/22 15:59 Pulse Ox 95 02/26/22 15:59 O2 Del Method 02/26/22 15:59 02/26/22 02/26/22 02/26/22 06:59 14:59 22:59 Intake Total 360 / 360 Balance 360 / 360 Physical Exam Narrative: GENERAL: Patient is alert, awake and oriented . [] NECK: No jugular vein distension. [] HEENT: No cyanosis. No icterus. No pallor. [] HEART: Regular S1 and S2. No murmur, rub or gallop. [] LUNGS: Clear to auscultate bilaterally. [] CENTRAL NERVOUS SYSTEM: Grossly nonfocal. [] EXTREMITIES: Lower extremities with 1+ edema bilaterally. Pulses palpable in the lower extremities, both dorsalis pedis and posterior tibial. [] Data 02/26/22 09:30 02/26/22 09:30 A&P Assessment and plan (1) Cardiomyopathy: (2) Altered mental status: (3) Acute psychosis: (4) Suicidal ideation: (5) Drug-induced psychotic disorder: (6) Elevated troponin: (7) Methamphetamine abuse: Plan Patient is chest pain free at time of my evaluation. Given drug abuse and non compliance he would be a high risk patient for invasive therapies. I discussed it with patient, medical therapy decision made. Although troponin elevation likely secondary to demand ischemia, continue aspirin, plavix and lovenox (48 hours) as no plan for coronary angiogram. Thank you for involving us with care of this patient. We will continue to follow. Please call with questions. Attestations Medical Necessity Statement*: Care expected to cross 2 midnights. Coding Level of Care Code Acute Code for [facility] Fw Diagnoses Cardiomyopathy I42.9 Altered mental status R41.82 Acute psychosis F23 Suicidal ideation R45.851 Drug-induced psychotic disorder F19.959 Elevated troponin R77.8 Methamphetamine abuse F15.10
[2022-02-26] MEDS: sertraline 50 mg Tablet PO (22:06)
[2022-02-26] MEDS: metoprolol succinate ER (24 HR) 25 mg Tablet 12.5 MG PO (22:07)
[2022-02-26] MEDS: quetiapine 100 mg Tablet PO (22:07)
[2022-02-26] MEDS: atorvastatin 40 mg Tablet PO (22:08)
[2022-02-26] MEDS: lisinopril 5 mg Tablet 2.5 MG PO (22:08)
[2022-02-27] VITALS (10 sets, daily range): BP systolic 107–116; BP diastolic 61–85; PULSE 83–99; RESP 12–22; TEMP 36.6–37.1; O2SAT 97–100
[2022-02-27 05:58] LABS: Basophils # 0.1 10^3/uL (0.0-0.1); Basophils % 0.8 %; Eosinophils # 0.1 10^3/uL (0.0-0.8); Eosinophils % 1.4 %; Hematocrit 44.7 % (42.0-52.0); Hemoglobin 13.8 g/dL (11.7-16.6); Lymphocytes # 2.7 10^3/uL (0.8-4.8); Lymphocytes % 34.1 %; Mean Corpuscular HGB Conc 30.9 g/dL (30.0-36.0); Mean Corpuscular Hemoglobin 28.5 pg (28.0-34.0); Mean Corpuscular Volume 92.4 fl (80-94); Monocytes # 0.8 10^3/uL (0.2-0.9); Monocytes % 9.9 %; Neutrophils # 4.29 10^3/uL (1.8-7.7); Neutrophils % 53.7 %; Nucleated Red Blood Cells % 0 %; Platelet Count 382 10^3/cmm (130-400); Red Blood Count 4.84 10^6/uL (4.1-5.3); Red Cell Distribution Width 16.2 % (12.1-15.1)
[2022-02-27] MEDS: clopidogrel 75 mg Tablet PO (06:13)
[2022-02-27 06:18] LABS: Alanine Aminotransferase 66 U/L (0-41); Albumin Level 3.3 g/dL (3.5-5.2); Alkaline Phosphatase 111 U/L (40-130); Anion Gap 11.4 (5-19); Aspartate Amino Transferase 42 U/L (0-40); Blood Urea Nitrogen 14 mg/dL (6-20); Calcium 8.4 mg/dL (8.5-10.5); Carbon Dioxide 25 mmol/L (22-29); Chloride 107 mmol/L (98-107); Globulin 2.4 g/dL (1.3-4.6); Glomerular Filtration Rate 126.9 mL/min (90-130); Glucose 83 mg/dL (65-115); Osmolality Calculated 288 mOsm/kg (285-295); Potassium 4.4 mmol/L (3.5-5.1); Sodium 139 mmol/L (136-145); Total Bilirubin 0.3 mg/dL (0.15-1.2); Total Protein 5.7 g/dL (6.6-8.7)
--- NOTE | 2022-02-27 09:19 | P.PN_ITS ---
Subjective Subjective: Patient currently on lovenox. Wants to go home. Vitals/I&O/Wt Last Vital Signs Temp 97.9 F 02/27/22 07:34 Pulse 86 02/27/22 07:34 Resp 15 02/27/22 07:34 BP 112/85 02/27/22 07:34 Pulse Ox 100 02/27/22 04:19 O2 Del Method 02/27/22 07:34 02/26/22 02/27/22 02/27/22 22:59 06:59 14:59 Intake Total 360 / 360 960 / 960 Balance 360 / 360 960 / 960 Physical Exam Narrative: GENERAL: Patient is alert, awake and oriented . [] NECK: No jugular vein distension. [] HEENT: No cyanosis. No icterus. No pallor. [] HEART: Regular S1 and S2. No murmur, rub or gallop. [] LUNGS: Clear to auscultate bilaterally. [] CENTRAL NERVOUS SYSTEM: Grossly nonfocal. [] EXTREMITIES: Lower extremities with 1+ edema bilaterally. Pulses palpable in the lower extremities, both dorsalis pedis and posterior tibial. [] Data 02/27/22 04:40 02/27/22 04:40 A&P Assessment and plan (1) Cardiomyopathy: (2) Altered mental status: (3) Acute psychosis: (4) Suicidal ideation: (5) Drug-induced psychotic disorder: (6) Elevated troponin: (7) Methamphetamine abuse: Plan No further chest pain. Continue aspirin and plavix. Continue anticoagulation with lovenox for 48 hours. Thank you for involving us with care of this patient. We will continue to follow. Please call with questions. Attestations Medical Necessity Statement*: Care expected to cross 2 midnights. Coding Level of Care Code Acute Code for [facility] Fwd Diagnoses Cardiomyopathy I42.9 Altered mental status R41.82 Acute psychosis F23 Suicidal ideation R45.851 Drug-induced psychotic disorder F19.959 Elevated troponin R77.8 Methamphetamine abuse F15.10
[2022-02-27] MEDS: aspirin 81 mg EC Tablet PO (09:57)
[2022-02-27] MEDS: potassium chloride ER 20 mEq Tablet 40 MEQ PO (09:57)
[2022-02-27] MEDS: isosorbide mononitrate ER 30 mg Tablet PO (09:57)
[2022-02-27] MEDS: enoxaparin 80 mg/0.8 mL Syringe SUBCUT (09:57)
[2022-02-27] MEDS: diphenhydrAMINE 50 mg Capsule PO (14:05)
[2022-02-27] MEDS: haloperidol 5 mg Tablet PO (14:06)
--- NOTE | 2022-02-27 15:46 | PM.PN ---
Subjective Subjective: Patient was seen and examined this morning, denied any chest pain today, on ACS protocol. Medications: Reviewed: Yes Medication Review Details: Generic Name Dose Route Start Last Admin Trade Name Freq PRN Reason Stop Dose Admin Aspirin 81 mg 02/22/22 21:55 02/27/22 09:57 Aspirin 81 Mg Ec Tablet PO 81 mg DAILY SARANYA Administration Atorvastatin Calci um 40 mg 02/22/22 21:55 02/26/22 22:08 Atorvastatin 40 Mg Tablet PO 40 mg BEDTIME SARANYA Administration Clopidogrel Bisulf ate 75 mg 02/26/22 06:15 02/27/22 06:13 Clopidogrel 75 M g Tablet PO 75 mg Q24H SARANYA Administration Diphenhydramine HC l 50 mg 02/22/22 07:48 02/27/22 14:05 Diphenhydramine 50 Mg Capsule PO 50 mg Q4H PRN Administration AGITATION Enoxaparin Sodium 80 mg 02/26/22 12:30 02/27/22 09:57 Enoxaparin 80 Mg /0.8 Ml Syringe SUBCUT 80 mg Q12H SARANYA Administration Haloperidol 5 mg 02/21/22 18:28 02/27/22 14:06 Haloperidol 5 Mg Tablet PO 5 mg Q4H PRN Administration AGITATION Hydroxyzine Pamoat e 50 mg 02/21/22 18:28 02/25/22 16:16 Hydroxyzine 25 M g Capsule PO 50 mg Q6H PRN Administration ANXIETY Isosorbide Mononit rate 30 mg 02/25/22 09:00 02/27/22 09:57 Isosorbide [place] itrate Er 30 Mg Ta blet PO 30 mg DAILY SARANYA Administration Lisinopril 2.5 mg 02/21/22 21:00 02/26/22 22:08 Lisinopril 5 Mg Tablet PO 2.5 mg BEDTIME SARANYA Administration Lorazepam 2 mg 02/22/22 07:47 02/26/22 02:05 Lorazepam 2 Mg T ablet PO 2 mg Q4H PRN Administration ANXIETY Metoprolol Succina te 12.5 mg 02/21/22 21:00 02/26/22 22:07 Metoprolol Succi molly Er (24 Hr) 25 Mg Tablet PO 12.5 mg BEDTIME SARANYA Administration Nitroglycerin 0.4 mg 02/26/22 01:49 02/26/22 01:54 Nitroglycerin 0. 4 Mg Sublingual Ta blet SUBLINGUAL 0.4 mg Q5M PRN Administration CHEST PAIN Potassium Chloride 40 meq 02/22/22 09:00 02/27/22 09:57 Potassium Chlori de Er 20 Meq Table t PO 40 meq DAILY SARANYA Administration Quetiapine Fumarat e 100 mg 02/21/22 21:00 02/26/22 22:07 Quetiapine 100 M g Tablet PO 100 mg BEDTIME SARANYA Administration Sertraline HCl 50 mg 02/21/22 21:00 02/26/22 22:06 Sertraline 50 Mg Tablet PO 50 mg BEDTIME SARANYA Administration Vitals/I&O/Wt Last Vital Signs Temp 98.0 F 02/27/22 11:40 Pulse 94 02/27/22 11:40 Resp 12 02/27/22 11:40 BP 109/72 02/27/22 11:40 Pulse Ox 98 02/27/22 11:40 O2 Del Method 02/27/22 11:40 02/27/22 02/27/22 02/27/22 06:59 14:59 22:59 Intake Total 1919 Balance 1919 Physical Exam Const: COMMON NORMALS: patient oriented x3 HENMT: COMMON NORMALS: normocephalic and atraumatic HEAD & SCALP: normocephalic and atraumatic Resp: COMMON NORMALS: normal respiratory effort, No retractions, No use of accessory muscles and clear to auscultation bilaterally EFFORT & INSPECTION: Yes symmetric chest movement AUSCULTATION: clear to auscultation bilaterally Cardio: COMMON NORMALS: regular rate, regular rhythm, S1 normal heart sound present, S2 normal heart sound present, No gallops present (Cardio), No murmurs present (Cardio), No rub (Cardio) and Peripheral pulses 2+ throughout RATE: regular rate RHYTHM: regular rhythm HEART SOUNDS: S1 normal heart sound present and S2 normal heart sound present PERIPHERAL PULSES: Peripheral pulses 2+ throughout GI: COMMON NORMALS: Normal to inspection, nondistended, normoactive bowel sounds present, Soft to palpation, non-tender, No hepatosplenomegaly present and no masses AUSCULTATION: Yes normoactive bowel sounds PALPATION: Yes Soft to palpation and Yes No hepatosplenomegaly present RECTAL EXAM: Yes deferred Extremity: COMMON NORMALS: no clubbing, cyanosis or edema and no pedal edema Neuro: COMMON NORMALS: patient oriented x3 Data 02/27/22 04:40 02/27/22 04:40 A&P Assessment and plan (1) Altered mental status: Patient presented to the hospital with altered mental status. Likely secondary to drug use. Urine drug screen tested positive for amphetamines benzodiazepines and marijuana. Patient has multiple track robb over his body. He is currently awake and alert, appears to be in no obvious distress. He is coordinated, able to self-feed, he uses a urinal and using the bathroom independently today. He does not seem to be unsteady. (2) Acute psychosis: Likely secondary to drug use and underlying psych diagnosis. (3) NSTEMI (non-ST elevated myocardial infarction): Patient had complained of chest pain on and off to the n.p.o. staff. He really has not complained of chest pain since presenting to the ICU. Troponin series showing elevated serial troponins in the 350s range with delta of 17 and 19 at 2 and 6 hours respectively. Per his father patient was recently admitted at [facility] for what sounds like heart attack . It is unknown at this time whether he underwent a cardiac cath or not. Records have been requested. Last known EF is at 20%. For further cardiomyopathy was attributed to drug use. Patient is unwilling to engage in conversation with me at this time regarding his further care. He does not say yes or no or talk at all about possibility of cardiac interventions. He is willing to take medications. He is currently on aspirin, atorvastatin, metoprolol 12.5 mg p.o. daily and lisinopril 2.5 mg p.o. daily. Overnight orders for heparin drip was placed but for some reason this was not started. Reason is not known at this time. We will go ahead and start him on Lovenox 1 mg/kg subcutaneously every 12 hours for NSTEMI. Will await records. If he had a fairly recent cardiac cath, we may not need to proceed with any interventional procedures as of now. At any rate he is unwilling to engage in conversation to discuss further care. His family will be here this afternoon. (4) Cardiomyopathy: Last known EF of 20%. Awaiting echocardiogram. Attestations Medical Necessity Statement*: Patient is in hospital for management NSTEMI Coding Level of Care Code Acute Code for [facility] Fwd Diagnoses Altered mental status R41.82 Acute psychosis F23 NSTEMI (non-ST elevated myocardial infarction) I21.4 Cardiomyopathy I42.9
--- NOTE | 2022-02-27 19:12 | W.PM.NPUPNS ---
Subjective NPU Subjective: Patient is a 36-year-old male admitted with vague suicidal ideation in the context of significant cardiac issues. The patient had reported feeling better and was seen on the CSU today. He reported having no thoughts of hurting himself or others. He had stated that he had been feeling better without any chest pain. He had admitted to significant methamphetamine abuse and had expressed some desire to consider treatment for his mood and substance abuse issues. Mental Status Exam MSE Comments: This is a slender diminutive white male in hospital scrubs with adequate grooming and improving eye contact. He appeared in no acute distress while lying in the hospital bed. He was pleasant and cooperative on interview. His mood was described as better. His affect appeared brighter. There was no evidence of psychomotor agitation or psychomotor retardation at this time. His thought process was linear logical and goal-directed. His thought content showed no evidence of homicidal or suicidal ideation. He did not appear to be responding internal stimuli. There was no evidence of any delusional thinking. His insight was poor at this time. His impulse control appeared guarded. His judgment remained limited but appeared to be improving. Vitals/I&O/Wt Last Vital Signs Temp 98.3 F 02/27/22 15:59 Pulse 93 02/27/22 15:59 Resp 19 H 02/27/22 15:59 BP 109/72 02/27/22 15:59 Pulse Ox 99 02/27/22 15:59 O2 Del Method 02/27/22 15:59 02/27/22 02/27/22 02/27/22 06:59 14:59 22:59 Intake Total 1919 / 1919 1200 / 3120 Balance 1919 1200 / 3120 Data NPU 02/27/22 04:40 02/27/22 04:40 A&P Assessment and plan (1) Acute psychosis: (2) Suicidal ideation: Plan This is a 36-year old white male with a significant medical history and possible addiction history who presents on psychiatric medication currently reporting no suicidal ideation Plan: 1.? Continue plan for likely discharge from the CSU tomorrow. I will attempt to set up outpatient discharge appointments and psychiatry for further treatment of depression as well as substance abuse treatment if possible. 2.? Continue every 15 minute checks for safety. 3.? Encourage individual, group and milieu therapies. 4.? Encourage sober living treatment after discharge at the highest level of care to which he is willing to commit. Involuntary Hold Information 96 Hour Hold: 96 Hour Involuntary Admission: Yes 96 Hour Hold Ending Date: 02/27/22 96 Hour Hold Ending Time: 15:42 Attestations NPU Medical Necessity Statement*: Inpatient hospitalization is medically necessary and the clinically appropriate intervention at this time.? We will monitor/initiate medications and titrate and make changes as indicated.? Likely length of stay 1-2 days. Coding Level of Care Code Established Pt Acute Code for [facility] Fwd Patient Type Established History Problem Focused Exam Problem Focused Medical Decision Making Straight Forward Diagnoses Acute psychosis F23 Suicidal ideation R45.851
[2022-02-27] MEDS: sertraline 50 mg Tablet PO (20:18)
[2022-02-27] MEDS: quetiapine 100 mg Tablet PO (20:18)
[2022-02-27] MEDS: atorvastatin 40 mg Tablet PO (20:18)
[2022-02-27] MEDS: metoprolol succinate ER (24 HR) 25 mg Tablet 12.5 MG PO (20:18)
[2022-02-27] MEDS: lisinopril 5 mg Tablet 2.5 MG PO (20:19)
[2022-02-28] VITALS: BP 101/59; PULSE 80; RESP 16; TEMP 36.6; O2SAT 94
[2022-02-28] MEDS: enoxaparin 80 mg/0.8 mL Syringe SUBCUT (00:10)
[2022-02-28 04:00] VITALS: BP 110/81; PULSE 94; RESP 14; TEMP 37.2; O2SAT 98
[2022-02-28] MEDS: clopidogrel 75 mg Tablet PO (05:25)
[2022-02-28 05:36] LABS: Basophils # 0.1 10^3/uL (0.0-0.1); Basophils % 1.2 %; Eosinophils # 0.2 10^3/uL (0.0-0.8); Eosinophils % 1.6 %; Hematocrit 44.5 % (42.0-52.0); Hemoglobin 13.9 g/dL (11.7-16.6); Lymphocytes # 3.4 10^3/uL (0.8-4.8); Lymphocytes % 36.6 %; Mean Corpuscular HGB Conc 31.2 g/dL (30.0-36.0); Mean Corpuscular Hemoglobin 29.1 pg (28.0-34.0); Mean Corpuscular Volume 93.1 fl (80-94); Mean Platelet Volume 9.8 fL (7.4-10.4); Monocytes # 0.9 10^3/uL (0.2-0.9); Monocytes % 9.9 %; Neutrophils # 4.66 10^3/uL (1.8-7.7); Neutrophils % 50.5 %; Nucleated Red Blood Cells % 0 %; Platelet Count 378 10^3/cmm (130-400); Red Blood Count 4.78 10^6/uL (4.1-5.3); Red Cell Distribution Width 16.2 % (12.1-15.1); White Blood Count 9.3 10^3/uL (4.0-10.0)
--- NOTE | 2022-02-28 05:56 | PC.NURSE ---
Patient rang call light for nurse, stated that he was told that he would be discharged at 8am and wanted his personal belongings. Nurse told patient that it looked like he might need one more dose of lovenox prior to discharged and that it might be in the afternoon. The patient became aggitated and said that he was being discharged at 8am, and that just how it would be happening. The patient stated he wanted a cup of coffee and his belongings and that he would be leaving at 8Am. The nurse notified of patient possibly leaving AMA if he is not discharged at 8am and also made supervisor cook house Elaina aware. The nurse to call NPU to check for patient belongings and to have them ready for discharge vs. patient leaving AMA.
[2022-02-28 06:01] LABS: Alanine Aminotransferase 55 U/L (0-41); Albumin Level 3.1 g/dL (3.5-5.2); Alkaline Phosphatase 117 U/L (40-130); Aspartate Amino Transferase 35 U/L (0-40); Blood Urea Nitrogen 14 mg/dL (6-20); Calcium 8.9 mg/dL (8.5-10.5); Carbon Dioxide 22 mmol/L (22-29); Chloride 107 mmol/L (98-107); Globulin 2.9 g/dL (1.3-4.6); Glomerular Filtration Rate 108.8 mL/min (90-130); Glucose 87 mg/dL (65-115); Osmolality Calculated 286 mOsm/kg (285-295); Sodium 138 mmol/L (136-145); Total Bilirubin 0.3 mg/dL (0.15-1.2)
[2022-02-28 06:05] LABS: Anion Gap 13.2 (5-19); Potassium 4.2 mmol/L (3.5-5.1)
--- NOTE | 2022-02-28 07:00 | PC.NURSE ---
upon shift change pt is already up and moving around, walking down the hallways. denies any pain or discomfort. he is starting to get restless since 5 am to go home. he stated, the doctor told me yesterday that they will discharge me at 8 in the morning. notified hospitalist.
[2022-02-28 07:20] VITALS: BP 117/87; PULSE 92; RESP 16; TEMP 36.7; O2SAT 99
[2022-02-28 07:30] VITALS: PULSE 98; RESP 16; O2SAT 97
--- NOTE | 2022-02-28 07:55 | PM.PN ---
Subjective Subjective: Patient was seen and examined this morning, denied any chest pain today.Completed 48Hrs of ACS Protocol. Medications: Reviewed: Yes Medication Review Details: Generic Name Dose Route Start Last Admin Trade Name Freq PRN Reason Stop Dose Admin Aspirin 81 mg 02/22/22 21:55 02/27/22 09:57 Aspirin 81 Mg Ec Tablet PO 81 mg DAILY SARANYA Administration Atorvastatin Calci um 40 mg 02/22/22 21:55 02/27/22 20:18 Atorvastatin 40 Mg Tablet PO 40 mg BEDTIME SARANYA Administration Clopidogrel Bisulf ate 75 mg 02/26/22 06:15 02/28/22 05:25 Clopidogrel 75 M g Tablet PO 75 mg Q24H SARANYA Administration Diphenhydramine HC l 50 mg 02/22/22 07:48 02/27/22 14:05 Diphenhydramine 50 Mg Capsule PO 50 mg Q4H PRN Administration AGITATION Enoxaparin Sodium 80 mg 02/26/22 12:30 02/28/22 00:10 Enoxaparin 80 Mg /0.8 Ml Syringe SUBCUT 80 mg Q12H SARANYA Administration Haloperidol 5 mg 02/21/22 18:28 02/27/22 14:06 Haloperidol 5 Mg Tablet PO 5 mg Q4H PRN Administration AGITATION Hydroxyzine Pamoat e 50 mg 02/21/22 18:28 02/25/22 16:16 Hydroxyzine 25 M g Capsule PO 50 mg Q6H PRN Administration ANXIETY Isosorbide Mononit rate 30 mg 02/25/22 09:00 02/27/22 09:57 Isosorbide [place] itrate Er 30 Mg Ta blet PO 30 mg DAILY SARANYA Administration Lisinopril 2.5 mg 02/21/22 21:00 02/27/22 20:19 Lisinopril 5 Mg Tablet PO 2.5 mg BEDTIME SARANYA Administration Lorazepam 2 mg 02/22/22 07:47 02/26/22 02:05 Lorazepam 2 Mg T ablet PO 2 mg Q4H PRN Administration ANXIETY Metoprolol Succina te 12.5 mg 02/21/22 21:00 02/27/22 20:18 Metoprolol Succi molly Er (24 Hr) 25 Mg Tablet PO 12.5 mg BEDTIME SARANYA Administration Nitroglycerin 0.4 mg 02/26/22 01:49 02/26/22 01:54 Nitroglycerin 0. 4 Mg Sublingual Ta blet SUBLINGUAL 0.4 mg Q5M PRN Administration CHEST PAIN Potassium Chloride 40 meq 02/22/22 09:00 02/27/22 09:57 Potassium Chlori de Er 20 Meq Table t PO 40 meq DAILY SARANYA Administration Quetiapine Fumarat e 100 mg 02/21/22 21:00 02/27/22 20:18 Quetiapine 100 M g Tablet PO 100 mg BEDTIME SARANYA Administration Sertraline HCl 50 mg 02/21/22 21:00 02/27/22 20:18 Sertraline 50 Mg Tablet PO 50 mg BEDTIME SARANYA Administration Vitals/I&O/Wt Last Vital Signs Temp 98.1 F 02/28/22 07:20 Pulse 98 02/28/22 07:30 Resp 16 02/28/22 07:30 BP 117/87 02/28/22 07:20 Pulse Ox 97 02/28/22 07:30 O2 Del Method 02/28/22 07:30 02/27/22 02/28/22 02/28/22 22:59 06:59 14:59 Intake Total 1200 / 3120 Balance 1200 / 3120 Physical Exam Const: COMMON NORMALS: patient oriented x3 HENMT: COMMON NORMALS: normocephalic and atraumatic HEAD & SCALP: normocephalic and atraumatic Resp: COMMON NORMALS: normal respiratory effort, No retractions, No use of accessory muscles and clear to auscultation bilaterally EFFORT & INSPECTION: Yes symmetric chest movement AUSCULTATION: clear to auscultation bilaterally Cardio: COMMON NORMALS: regular rate, regular rhythm, S1 normal heart sound present, S2 normal heart sound present, No gallops present (Cardio), No murmurs present (Cardio), No rub (Cardio) and Peripheral pulses 2+ throughout RATE: regular rate RHYTHM: regular rhythm HEART SOUNDS: S1 normal heart sound present and S2 normal heart sound present PERIPHERAL PULSES: Peripheral pulses 2+ throughout GI: COMMON NORMALS: Normal to inspection, nondistended, normoactive bowel sounds present, Soft to palpation, non-tender, No hepatosplenomegaly present and no masses AUSCULTATION: Yes normoactive bowel sounds PALPATION: Yes Soft to palpation and Yes No hepatosplenomegaly present RECTAL EXAM: Yes deferred Extremity: COMMON NORMALS: no clubbing, cyanosis or edema and no pedal edema Neuro: COMMON NORMALS: patient oriented x3 Data 02/28/22 04:40 02/28/22 04:40 Micro: Microbiology 02/22/22 19:15 Blood Culture - Final Blood NO GROWTH AFTER 5 DAYS 02/22/22 19:12 Blood Culture - Final Blood NO GROWTH AFTER 5 DAYS A&P Assessment and plan (1) Altered mental status: Patient presented to the hospital with altered mental status. Likely secondary to drug use. Urine drug screen tested positive for amphetamines benzodiazepines and marijuana. Patient has multiple track robb over his body. He is currently awake and alert, appears to be in no obvious distress. He is coordinated, able to self-feed, he uses a urinal and using the bathroom independently today. He does not seem to be unsteady. (2) Acute psychosis: Likely secondary to drug use and underlying psych diagnosis. (3) NSTEMI (non-ST elevated myocardial infarction): Patient had complained of chest pain on and off to the n.p.o. staff. He really has not complained of chest pain since presenting to the ICU. Troponin series showing elevated serial troponins in the 350s range with delta of 17 and 19 at 2 and 6 hours respectively. Per his father patient was recently admitted at [facility] for what sounds like heart attack . It is unknown at this time whether he underwent a cardiac cath or not. Records have been requested. Last known EF is at 20%. For further cardiomyopathy was attributed to drug use. Patient is unwilling to engage in conversation with me at this time regarding his further care. He does not say yes or no or talk at all about possibility of cardiac interventions. He is willing to take medications. He is currently on aspirin, atorvastatin, metoprolol 12.5 mg p.o. daily and lisinopril 2.5 mg p.o. daily. Overnight orders for heparin drip was placed but for some reason this was not started. Reason is not known at this time. We will go ahead and start him on Lovenox 1 mg/kg subcutaneously every 12 hours for NSTEMI. Will await records. If he had a fairly recent cardiac cath, we may not need to proceed with any interventional procedures as of now. At any rate he is unwilling to engage in conversation to discuss further care. His family will be here this afternoon. (4) Cardiomyopathy: Last known EF of 20%. Awaiting echocardiogram. Attestations Medical Necessity Statement*: Patient can be discharged from medicine standpoint. Coding Level of Care Code Acute Code for [facility] Fwd Diagnoses Altered mental status R41.82 Acute psychosis F23 NSTEMI (non-ST elevated myocardial infarction) I21.4 Cardiomyopathy I42.9
--- NOTE | 2022-02-28 08:00 | PC.NURSE ---
notified of psychiatrist. celeste is not in hospital. called NPU and transferred me to case filler. notified Jt in NPU that pt is going to be discharge today and for any referrals as an outpt per doctor note yesterday.
--- NOTE | 2022-02-28 08:14 | P.PN_ITS ---
Subjective Subjective: Patient is stable. No chest pain. Vitals/I&O/Wt Last Vital Signs Temp 98.1 F 02/28/22 07:20 Pulse 98 02/28/22 07:30 Resp 16 02/28/22 07:30 BP 117/87 02/28/22 07:20 Pulse Ox 97 02/28/22 07:30 O2 Del Method 02/28/22 07:30 02/27/22 02/28/22 02/28/22 22:59 06:59 14:59 Intake Total 1200 / 3120 Balance 1200 / 3120 Physical Exam Narrative: GENERAL: Patient is alert, awake and oriented . [] NECK: No jugular vein distension. [] HEENT: No cyanosis. No icterus. No pallor. [] HEART: Regular S1 and S2. No murmur, rub or gallop. [] LUNGS: Clear to auscultate bilaterally. [] CENTRAL NERVOUS SYSTEM: Grossly nonfocal. [] EXTREMITIES: Lower extremities with 1+ edema bilaterally. Pulses palpable in the lower extremities, both dorsalis pedis and posterior tibial. [] Data 02/28/22 04:40 02/28/22 04:40 Micro: Microbiology 02/22/22 19:15 Blood Culture - Final Blood NO GROWTH AFTER 5 DAYS 02/22/22 19:12 Blood Culture - Final Blood NO GROWTH AFTER 5 DAYS A&P Assessment and plan (1) Cardiomyopathy: (2) Altered mental status: (3) Acute psychosis: (4) Suicidal ideation: (5) Drug-induced psychotic disorder: (6) Elevated troponin: (7) Methamphetamine abuse: Plan Patient is stable. Lovenox completed. Continue aspirin and Plavix. Thank you for involving us with care of this patient. We will continue to follow. Please call with questions. Attestations Medical Necessity Statement*: Care expected to cross 2 midnights. Coding Level of Care Code Acute Code for [facility] Fw Diagnoses Cardiomyopathy I42.9 Altered mental status R41.82 Acute psychosis F23 Suicidal ideation R45.851 Drug-induced psychotic disorder F19.959 Elevated troponin R77.8 Methamphetamine abuse F15.10
--- NOTE | 2022-02-28 08:15 | PC.NURSE ---
notified pt and father that discharge meds are sent to out pharmacy in main campus.
[2022-02-28 08:26] VITALS: BP 117/87; PULSE 98; RESP 16; O2SAT 97
--- NOTE | 2022-02-28 17:15 | P.NPUDS_ITS ---
Diagnoses at Discharge Discharge Diagnosis (1) Cardiomyopathy: Status: Acute (2) Altered mental status: Status: Acute (3) Acute psychosis: Status: Acute (4) Suicidal ideation: Status: Acute (5) Drug-induced psychotic disorder: Status: Acute (6) Elevated troponin: Status: Acute (7) Methamphetamine abuse: Status: Acute Reason for Visit Reason for Visit: 96 hour hold Brief History: History of Present Illness Jose Angel Madrigal is a 36 year old male who presented to the emergency department with the following report: Chief Complaint: Psychiatric Symptoms Stated Complaint: 96 hour hold Time Seen by Provider: 02/21/22 14:43 History of Present Illness:?? Patient is a 36-year-old male who comes to the ED via police for mental health evaluation.? Past medical history of PTSD, bipolar disorder.? Patient is giving minimal responses to my questions.? When asked if he is suicidal he says I am not going to tell you my answer because then you guys will keep me here. ? Patient did endorse wanting something for anxiety.? He denies any recent drug or alcohol use. delinquency prevention officer brought in signed affidavit on patient.? Officer told nurse that patient has a history of meth amphetamine use.? Affidavit stated that police officers were called out to the scene because of a combative suspect.? Once they are on the scene he still patient and he refused to get out of his vehicle.? He then drove off in the vehicle and state troopers were able to finally get him to stop and restrain patient.? He stated to them that he wanted to end his life and they also said he was having hallucinations.? Patient's family told officers that they think he is having another mental episode. Associated symptoms: Reports suicidal ideation. He was admitted to the neuropsychiatric unit for definitive treatment of those issues.? From the time that he arrived at the unit as well as this morning he is fairly disoriented.? He has not been able to really participate in the history taking process only having moments of transient alertness with being shaken or his name being yelled.? He has only really mumbled here and there.? He has made offensive comments to the nurses when they have moved some.? He had to be assisted to his bed when he got to the unit.? He had no helpful information for me and we at this point did not have a UDS to have a sense of why he is having the response he is having. Hospital Course Hospital Course Jose Angel Madrigal is a 36-year-old male with past medical history significant for congestive heart failure, emphysema, polysubstance abuse and cardiomyopathy who presented with altered mental status with suicidal ideation, a found to have acute psychosis and acute toxic metabolic encephalopathy. Patient found to have elevated troponin initially concerning for NSTEMI however presentation more consistent with acute myocardial injury secondary to drug abuse rather than a type I NSTEMI. Echocardiogram revealed LVEF of 20 percent similiar to his prior echocardiogram results at [facility]. Cardiology was consulted and he was medically managed. Patient had elevated Troponin and was admitted to [facility] directly from the NPU for 48 hours. While in the NPU, he denied any lethality and it was deemed that the patient had achieved maximum medical benefit with with the patient reporting that his mood was improved. He was somewhat agreeable to follow-up on an outpatient basis for management of his mood and his substance abuse issues. Involuntary Hold Information 96 Hour Hold: 96 Hour Involuntary Admission: Yes 96 Hour Hold Ending Date: 02/27/22 96 Hour Hold Ending Time: 15:42 Mental Status Exam MSE Comments: This is a slender diminutive white male in hospital scrubs with adequate grooming and improving eye contact. He appeared in no acute distress while lying in the hospital bed. He was pleasant and cooperative on interview. His mood was described as better. His affect appeared brighter. There was no evidence of psychomotor agitation or psychomotor retardation at this time. His thought process was linear logical and goal-directed. His thought content showed no evidence of homicidal or suicidal ideation. He did not appear to be responding internal stimuli. There was no evidence of any delusional thinking. His insight was poor at this time. His impulse control appeared guarded. His judgment remained limited but appeared to be improving. Discharge Data Studies Completed and Pending: Completed Studies During Hospitalization Category Date Time Status CT head wo con* [id number] Routine Cat Scan 02/22/22 13:48 Completed CXRP [XR chest 1V portable [id number]] R outine Exams 02/22/22 18:49 [place] [id number] Routin e Ultrasound 02/23/22 23:51 Completed CV. echo complete * [id number] Routine Ultrasound 02/22/22 21:55 [place] [id number] Ro utine Ultrasound 02/22/22 18:47 Completed Radiology Impressions Head CT 02/22/22 13:48 IMPRESSION: 1. No evidence of intracranial hemorrhage or mass effect. 2. Normal montemayor-white differentiation. 3. Mild mucosal thickening in the RIGHT frontoethmoidal recess and RIGHT maxillary sinus. Mild mucosal thickening ethmoid air cells. 4. No acute intracranial findings. Liver Ultrasound 02/22/22 18:47 IMPRESSION: Normal RIGHT upper quadrant ultrasound. Mild cardiac enlargement. Chest X-Ray 02/22/22 18:49 IMPRESSION: Cardiomegaly with pulmonary edema. Multilobar pneumonia is considered less likely. Laboratory Results WBC 9.3 10^3/uL (4.0- 10.0) 02/28/22 04:40 RBC 4.78 10^6/uL (4.1 -5.3) 02/28/22 04:40 Hgb 13.9 g/dL (11.7-1 6.6) 02/28/22 04:40 Hct 44.5 % (42.0-52.0 ) 02/28/22 04:40 MCV 93.1 fl (80-94) 02/28/22 04:40 MCH 29.1 pg (28.0-34. 0) 02/28/22 04:40 MCHC 31.2 g/dL (30.0-3 6.0) 02/28/22 04:40 RDW 16.2 % (12.1-15.1 ) H 02/28/22 04:40 Plt Count 378 10^3/cmm (130 -400) 02/28/22 04:40 MPV 9.8 fL (7.4-10.4) 02/28/22 04:40 Neut % (Auto) 50.5 % 02/28/22 04:40 Lymph % (Auto) 36.6 % 02/28/22 04:40 Delta % (Auto) 9.9 % 02/28/22 04:40 Eos % (Auto) 1.6 % 02/28/22 04:40 Baso % (Auto) 1.2 % 02/28/22 04:40 Neut # (Auto) 4.66 10^3/uL (1.8 -7.7) 02/28/22 04:40 Lymph # (Auto) 3.4 10^3/uL (0.8- 4.8) 02/28/22 04:40 Delta # (Auto) 0.9 10^3/uL (0.2- 0.9) 02/28/22 04:40 Eos # (Auto) 0.2 10^3/uL (0.0- 0.8) 02/28/22 04:40 Baso # (Auto) 0.1 10^3/uL (0.0- 0.1) 02/28/22 04:40 Nucleated RBC % (a uto) 0 % 02/28/22 04:40 Nucleated RBCs # 0.0 /100WBC 02/28/22 04:40 D-Dimer 1.29 ug/mIFEU (0- 0.59) H 02/25/22 08:35 Specimen Type Arterial 02/22/22 21:40 Sample Site Radial, left 02/22/22 21:40 ABG pH 7.46 (7.35-7.45) H 02/22/22 21:40 ABG pCO2 33.7 mmHg (35-45) L 02/22/22 21:40 ABG pO2 59.6 mmHg (80.0-1 00.0) L 02/22/22 21:40 ABG HCO3 24.0 mmol/L (22-2 6) 02/22/22 21:40 ABG Base Excess 0.8 mmol/L (-2.0- 2.0) 02/22/22 21:40 Masood Test Pos 02/22/22 21:40 Hematocrit 49.0 % (42-52) 02/22/22 21:40 O2 Delivery Device Room air 02/22/22 21:40 Point Of Sale Associate ID [email or web address] 02/22/22 21:40 Sodium 138 mmol/L (136-1 45) 02/28/22 04:40 Potassium 4.2 mmol/L (3.5-5 .1) 02/28/22 04:40 Chloride 107 mmol/L (98-10 7) 02/28/22 04:40 Carbon Dioxide 22 mmol/L (22-29) 02/28/22 04:40 Anion Gap 13.2 (5-19) 02/28/22 04:40 BUN 14 mg/dL (6-20) 02/28/22 04:40 Creatinine 0.8 mg/dL (0.7-1. 2) 02/28/22 04:40 GFR Calculation 108.8 mL/min (90- 130) 02/28/22 04:40 Glucose 87 mg/dL (65-115) 02/28/22 04:40 Calculated Osmolal ity 286 mOsm/kg (285- 295) 02/28/22 04:40 Lactate 2.2 mmol/L (0.5-2 .2) 02/23/22 03:07 Calcium 8.9 mg/dL (8.5-10 .5) 02/28/22 04:40 Magnesium 2.1 mg/dL (1.7-2. 3) 02/23/22 03:07 Total Bilirubin 0.3 mg/dL (0.15-1 .2) 02/28/22 04:40 AST 35 U/L (0-40) 02/28/22 04:40 ALT 55 U/L (0-41) H 02/28/22 04:40 Alkaline Phosphata se 117 U/L (40-130) 02/28/22 04:40 Ammonia 28 umol/L (16-60) 02/22/22 20:50 Creatine Kinase 209 U/L (39-308) 02/22/22 22:38 Troponin T Gen 5 n g/L 249 ng/L (0-15) H* 02/25/22 08:35 Troponin T Baselin e 604 ng/L (0-15) H* 02/26/22 03:13 Troponin T 120 Min alli 603.6 ng/L (0-15) H 02/26/22 05:56 Delta Troponin T -0.4 ABS# (0-10) L 02/26/22 05:56 Troponin T Hi Sens 6Hr 584.1 ng/L (0-15) H 02/26/22 09:30 Troponin T Hi Sens 6Hr Delta -19.9 ng/L (0-12) L 02/26/22 09:30 C-Reactive Protein 17.3 mg/L (0.0-4. 9) H 02/22/22 22:38 NT-Pro-B Natriuret Pep 74624 pg/mL (0-12 5) H 02/22/22 19:12 Total Protein 6.0 g/dL (6.6-8.7 ) L 02/28/22 04:40 Albumin 3.1 g/dL (3.5-5.2 ) L 02/28/22 04:40 Globulin 2.9 g/dL (1.3-4.6 ) 02/28/22 04:40 Lipase 17 U/L (13-60) 02/21/22 15:05 Procalcitonin 0.19 ng/mL (0-0.5 ) 02/22/22 22:38 TSH 2.30 uIU/mL (0.27 -4.20) 02/22/22 19:12 Salicylates < 0.3 mg/dL (3-10 ) L 02/21/22 15:05 Urine Opiates Scre en Negative ng/mL (N egative) 02/22/22 17:21 Acetaminophen < 5.0 ug/mL (10-3 0) L 02/21/22 15:05 Ur Barbiturates Sc reen Negative ng/mL (N egative) 02/22/22 17:21 Ur Phencyclidine S crn Negative ng/mL (N egative) 02/22/22 17:21 Ur Amphetamines Sc reen Positive ng/mL (N egative) H 02/22/22 17:21 U Benzodiazepines Scrn Positive ng/mL (N egative) H 02/22/22 17:21 Urine Cocaine Scre en Negative ng/mL (N egative) 02/22/22 17:21 U Marijuana (THC) Screen Positive ng/mL (N egative) H 02/22/22 17:21 Ethyl Alcohol < 10 mg/dL (0-10) 02/22/22 22:38 Hepatitis A IgM Ab Non-reactive (No nreactive) 02/22/22 19:12 Hep Bs Antigen Non-reactive (No nreactive) 02/22/22 19:12 Hep Bs Antibody 18.9 (11.5-1000) 02/22/22 19:12 Hep B Core Total A b Non-reactive (No nreactive) 02/22/22 19:12 Hepatitis C Antibo dy Non-reactive (No nreactive) 02/22/22 19:12 HIV 1&2 Ab & HIV 1 Ag Non-reactive (No n-Reactiv) 02/22/22 22:38 HIV 1&2 Antibody Non-reactive (No n-Reactiv) 02/22/22 22:38 Vitals: Last Vital Signs Temp 98.1 F 02/28/22 07:20 Pulse 98 02/28/22 08:26 Resp 16 02/28/22 08:26 BP 117/87 02/28/22 08:26 Pulse Ox 97 02/28/22 08:26 O2 Del Method 02/28/22 07:30 Discharge Plan Discharge Patient Disposition: Home Condition: Stable Prescriptions: New atorvastatin 40 mg Tablet 40 mg PO BEDTIME 30 Days Qty: 30 3RF isosorbide mononitrate 30 mg Tablet Extended Release 24 Hr 30 mg PO DAILY 30 Days Qty: 30 3RF clopidogrel 75 mg Tablet 75 mg PO Q24H 30 Days Qty: 30 3RF aspirin 81 mg Tablet,Delayed Release (Dr/Ec) 81 mg PO DAILY 30 Days Qty: 30 3RF Lasix 20 mg tablet 20 mg PO DAILY PRN (Reason: edema) Qty: 30 3RF Rx Instructions: for edema, weight gain more then 3 pounds in 3 days and for associated sob Nitrostat 0.4 mg tablet, sublingual 0.4 mg sublingual Q5M PRN (Reason: chest pain) Qty: 30 1RF Rx Instructions: do not exceed 3 doses per episode Continued potassium chloride 20 mEq tablet,ER particles/crystals 40 meq PO DAILY metoprolol succinate 25 mg tablet extended release 24 hr 12.5 mg PO BEDTIME lisinopril 2.5 mg tablet 2.5 mg PO BEDTIME quetiapine 100 mg tablet 100 mg PO BEDTIME 30 Days Qty: 30 1RF Changed sertraline 50 mg tablet 50 mg PO DAILY 30 Days Qty: 30 1RF Discontinued furosemide 40 mg tablet 80 mg PO DAILY Discharge Orders: Discharge Order (Routine); Ordered 02/28/22 Ordered By: Sadi Fuentes Referrals: [facility] [Outside] - 4-7 days (Walk in for services Saturday Thru Saturday 7:30am to 3pm.) Discharge Diet: Low Salt Discharge Activity: Limit activity as instructed Patient Instructions: Nitroglycerin (By mouth) (Nitro-Time), Furosemide (By mouth) (Lasix), Aspirin (By mouth) (Abdon Extra Strength, Abdon Aspirin Children[facility],..., Isosorbide Mononitrate (By mouth) (Imdur, Imdur ER, Ismo), Atorvastatin (By mouth) (Lipitor), Clopidogrel (By mouth) (Plavix), Opioid Safety Discharge Attestations NPU Time Spent in Discharge Care*: less than 30 min Specific Discharge Activities: Specific discharge activities: educating patient, documenting/other paperwork and evaluating patient/reviewing data Coding Level of Care Code Established Pt Acute Chg FW DC note Patient Type Established History Problem Focused Exam Problem Focused Medical Decision Making Straight Forward Diagnoses Cardiomyopathy I42.9 Altered mental status R41.82 Acute psychosis F23 Suicidal ideation R45.851 Drug-induced psychotic disorder F19.959 Elevated troponin R77.8 Methamphetamine abuse F15.10
== END 2022-02-28 08:40 | disposition home or self-care (01) | DRG 896 ==
LOC: ER 16:42 → NP 02-22 00:54 → ICU 02-22 21:32 → NP 02-24 14:31 → CSU 02-26 13:59
PROVIDERS: Family Medicine; Internal Medicine; Physician Assistant; Student in an Organized Health Care Education/Training Program; Admitting Provider Psychiatry & Neurology Psychiatry; Emergency Provider Family Medicine; Visit Provider Psychiatry & Neurology Psychiatry
DX: F15.151 Other stimulant abuse with stimulant-induced psychotic disorder with hallucinations (principal); G92.8 Other toxic encephalopathy; I21.4 Non-ST elevation (NSTEMI) myocardial infarction; I42.8 Other cardiomyopathies; R45.851 Suicidal ideations; I50.22 Chronic systolic (congestive) heart failure; J43.9 Emphysema, unspecified; F12.90 Cannabis use, unspecified, uncomplicated; F13.90 Sedative, hypnotic, or anxiolytic use, unspecified, uncomplicated; F14.90 Cocaine use, unspecified, uncomplicated; W18.30XA Fall on same level, unspecified, initial encounter; Y93.E1 Activity, personal bathing and showering; Y92.231 Patient bathroom in hospital as the place of occurrence of the external cause; F17.200 Nicotine dependence, unspecified, uncomplicated; Z91.199 Patient's noncompliance with other medical treatment and regimen due to unspecified reason
CPT/HCPCS: 36415; 36600; 70450; 71045; 76705; 80053; 80306; 80307; 82140; 82550; 82803; 83605; 83690; 83735; 83880; 84145; 84443; 84484; 85025; 85378; 86140; 86705; 86706; 86709; 86803; 87040; 87086; 87340; 87806; 93005; 93306; 93970; 94664; 96372; 97165; 99285; J1650; Q0163

== ENCOUNTER 2024-01-01 04:07 | Emergency (ER) | payer BC, MEDICAID, SELFPAY ==
[2024-01-01 04:08] VITALS: BP 96/81; PULSE 68; RESP 18; TEMP 36.7; O2SAT 100; BMI 21.1
--- NOTE | 2024-01-01 04:11 | ECG_ITS ---
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1985 Requested By: Pipo Parra Order Number: [id number] Reading MD: JANA COOPER Measurements Intervals [place] Rate: 67 P: 74 ND: 167 QRS: -76 QRSD: 110 T: 108 QT: 478 QTc: 507 Interpretive Statements SINUS RHYTHM LEFT AXIS DEVIATION [QRS AXIS < -30] LEFT VENTRICULAR HYPERTROPHY AND ST-T CHANGE [VOLTAGE CRITERIA PLUS ST/T ABNORMALITY] INTERPRETATION BASED ON A DEFAULT AGE OF 40 YEARS Compared to ECG 02/26/2022 09:28:39 Left-axis deviation now present Left ventricular hypertrophy now present ST (T wave) deviation now present T-wave abnormality no longer present Possible ischemia no longer present Electronically Signed On 01-01-2024 17:21:42 [employer]ER [employer]IP[employer]ACH[employer] by JANA COOPER [id number]
--- NOTE | 2024-01-01 04:13 | ED_ITS ---
Documented by User: Pipo Parra DO 01/01/24 17:19 HPI - Chest Pain 2 General: Chief Complaint: Chest Pain Stated Complaint: chest pain Time Seen by Provider: 01/01/24 04:13 History of Present Illness: Patient presents to the ER by [facility]'s office. This pain. Patient's chest pain started between 1 and 2:00. Henderson said they administered nitro approximately 150. EMS checked the patient out but could not get a good EKG due to the patient shaking. So they brought him here for further evaluation. They said patient was also diaphoretic and pale and dusky at that time. Per review of the chart patient has a history of cardiomyopathy with ejection fraction of about 20%, patient history of polysubstance abuse and noncompliance. He has had troponins in the past in the neighborhoods of 3-600 with a BNP of almost 11,000, Current medication list updated through the deputy. Henderson says patient is currently compliant with medications and takes them on a daily basis. Related Data Home Medications Medication Instructions Recorded Confirmed lisinopril 2.5 mg tablet 2.5 mg PO BEDTIME 02/21/22 03/01/22 metoprolol succinate 25 mg 12.5 mg PO BEDTIME 02/21/22 03/01/22 tablet,extended release 24 hr potassium chloride 20 mEq 40 meq PO DAILY 02/21/22 03/01/22 tablet,extended release(part/cryst) apixaban 5 mg tablet (Eliquis) mg 01/01/24 bumetanide 2 mg tablet mg 01/01/24 potassium chloride 20 mEq meq PO 01/01/24 tablet,extended release(part/cryst) sacubitril 24 mg-valsartan 26 mg tab 01/01/24 tablet (Entresto) Previous Rx's Medication Instructions Recorded quetiapine 100 mg tablet 100 mg PO BEDTIME 30 days #30 tabs 02/27/22 sertraline 50 mg tablet 50 mg PO DAILY 30 days #30 tabs 02/27/22 aspirin 81 mg tablet,delayed 81 mg PO DAILY 30 days #30 tabs 02/28/22 release atorvastatin 40 mg tablet 40 mg PO BEDTIME 30 days #30 tabs 02/28/22 clopidogrel 75 mg tablet 75 mg PO Q24H 30 days #30 tabs 02/28/22 furosemide 20 mg tablet (Lasix) 20 mg PO DAILY PRN edema #30 tabs 02/28/22 isosorbide mononitrate 30 mg 30 mg PO DAILY 30 days #30 tabs 02/28/22 tablet,extended release 24 hr nitroglycerin 0.4 mg sublingual 0.4 mg sublingual Q5M PRN chest 02/28/22 tablet (Nitrostat) pain #30 tabs Allergies Allergy/AdvReac Type Severity Reaction Status Date / Time No Known Allergies Allergy Verified 01/01/24 04:14 Review of Systems 2 General: Reports: 10 or more systems reviewed and unremarkable except in HPI and below PFSH ED 2 PFSH: Medical History Methamphetamine abuse Elevated troponin Physical Exam 2 Const: COMMON NORMALS: no acute distress, average body habitus, patient oriented x3, no limitations, healthy appearing, alert and well nourished HENMT: COMMON NORMALS: normocephalic, atraumatic, hearing grossly normal bilaterally, external ears normal, Normal external nose present and moist oral mucous membranes HEAD & SCALP: normocephalic and atraumatic NOSE: Normal external nose present EXTERNAL EAR: Yes external ears normal Eye: COMMON NORMALS: Equal, round and reactive pupils present, EOMs intact bilaterally, conjunctivae normal and no scleral icterus CONJUNCTIVA: Yes conjunctivae normal PUPIL: Yes Equal, round and reactive pupils present Neck/C-Spine: COMMON NORMALS: no JVD Chest: COMMONS NORMALS: normal inspection of the chest and normal palpation of entire chest wall Resp: COMMON NORMALS: normal respiratory effort, No retractions, No use of accessory muscles and clear to auscultation bilaterally AUSCULTATION: clear to auscultation bilaterally Cardio: COMMON NORMALS: no JVD, regular rate, regular rhythm, S1 normal heart sound present, S2 normal heart sound present, No gallops present (Cardio), No clicks present (Cardio), No murmurs present (Cardio) and No rub (Cardio) R ATE: regular rate RHYTHM: regular rhythm HEART SOUNDS: S1 normal heart sound present and S2 normal heart sound present GI: COMMON NORMALS: Normal to inspection, nondistended, normoactive bowel sounds present, Soft to palpation, non-tender, No hepatosplenomegaly present and no masses PALPATION: Yes Soft to palpation and Yes No hepatosplenomegaly present Neuro: COMMON NORMALS: patient oriented x3 SENSORIUM/ORIENTATION: Yes alert Course 2 Vital Signs: Vital signs: Vital Signs Temperature 98.1 F 01/01/24 04:08 Pulse Rate 60 01/01/24 07:34 Respiratory Rate 14 01/01/24 06:35 Blood Pressure 107/76 01/01/24 07:34 Pulse Oximetry 100 01/01/24 07:34 Oxygen Delivery Me thod Room Air 01/01/24 06:18 MDM - Chest Pain Medical Decision Making Care transferred over to Dr. Andrews at shift change Medical Records I reviewed the patient's medical records. Lab Data I reviewed the patient's lab results. 01/01/24 04:30 01/01/24 04:30 Radiology Impressions Chest X-Ray 01/01/24 04:17 IMPRESSION: 1. No acute cardiopulmonary findings. Laboratory Results WBC 10.50 10^3/uL (3.29-11.43) 01/01/24 04:30 RBC 5.19 10^6/uL (3.85-5.65) 01/01/24 04:30 Hgb 15.70 g/dL (11.27-16.99) 01/01/24 04:30 Hct 46.0 % (37-53) 01/01/24 04:30 MCV 88.6 fl (82-101) 01/01/24 04:30 MCH 30.3 pg (27-33) 01/01/24 04:30 MCHC 34.1 g/dL (30-55) 01/01/24 04:30 RDW 12.1 % (12.1-15.1) 01/01/24 04:30 Plt Count 295 10^3/cmm (157-399) 01/01/24 04:30 MPV 9.2 fL (7.4-10.4) 01/01/24 04:30 Neut % (Auto) 73.1 % 01/01/24 04:30 Lymph % (Auto) 16.7 % 01/01/24 04:30 Runnels % (Auto) 8.7 % 01/01/24 04:30 Eos % (Auto) 0.6 % 01/01/24 04:30 Baso % (Auto) 0.6 % 01/01/24 04:30 Neut # (Auto) 7.69 10^3/uL (1.8-7.7) 01/01/24 04:30 Lymph # (Auto) 1.8 10^3/uL (0.8-4.8) 01/01/24 04:30 Runnels # (Auto) 0.9 10^3/uL (0.2-0.9) 01/01/24 04:30 Eos # (Auto) 0.1 10^3/uL (0.0-0.8) 01/01/24 04:30 Baso # (Auto) 0.1 10^3/uL (0.0-0.1) 01/01/24 04:30 Nucleated RBC % (auto) 0 % 01/01/24 04:30 Nucleated RBCs # 0.0 /100WBC 01/01/24 04:30 PT 15.80 SECONDS (12.1-14.9) H 01/01/24 04:30 INR 1.22 (0.8-1.2) H 01/01/24 04:30 Sodium 139 mmol/L (136-145) 01/01/24 04:30 Potassium 3.6 mmol/L (3.5-5.1) 01/01/24 04:30 Chloride 98 mmol/L (98-107) 01/01/24 04:30 Carbon Dioxide 27 mmol/L (22-29) 01/01/24 04:30 Anion Gap 17.6 (5-19) 01/01/24 04:30 BUN 16 mg/dL (6-20) 01/01/24 04:30 Creatinine 1.0 mg/dL (0.7-1.2) 01/01/24 04:30 GFR Calculation 83.2 mL/min (90-130) L 01/01/24 04:30 Glucose 106 mg/dL (65-115) 01/01/24 04:30 Calculated Osmolality 290 mOsm/kg (285-295) 01/01/24 04:30 Calcium 8.8 mg/dL (8.5-10.5) 01/01/24 04:30 Magnesium 2.1 mg/dL (1.7-2.3) 01/01/24 04:30 Total Bilirubin 0.5 mg/dL (0.15-1.2) 01/01/24 04:30 AST 22 U/L (0-40) 01/01/24 04:30 ALT 17 U/L (0-41) 01/01/24 04:30 Alkaline Phosphatase 131 U/L (40-130) H 01/01/24 04:30 Creatine Kinase 139 U/L (39-308) 01/01/24 04:30 Troponin T Baseline 23 ng/L (0-15) H 01/01/24 04:30 Troponin T 120 Minute 17.40 ng/L (0-15) H 01/01/24 06:27 Delta Troponin T -5.60 ABS# (0-10) L 01/01/24 06:27 NT-Pro-B Natriuret Pep 275 pg/mL (0-125) H 01/01/24 04:30 Total Protein 7.5 g/dL (6.6-8.7) 01/01/24 04:30 Albumin 4.9 g/dL (3.5-5.2) 01/01/24 04:30 Globulin 2.6 g/dL (1.3-4.6) 01/01/24 04:30 All radiology interpretation(s) finalized by discharge Discharge Plan Discharge Patient Disposition: Home Clinical Impression: Cardiomyopathy Condition: Stable Prescriptions: No Action potassium chloride 20 mEq tablet,ER particles/crystals 40 meq PO DAILY metoprolol succinate 25 mg tablet extended release 24 hr 12.5 mg PO BEDTIME lisinopril 2.5 mg tablet 2.5 mg PO BEDTIME quetiapine 100 mg tablet 100 mg PO BEDTIME 30 Days Qty: 30 1RF sertraline 50 mg tablet 50 mg PO DAILY 30 Days Qty: 30 1RF atorvastatin 40 mg Tablet 40 mg PO BEDTIME 30 Days Qty: 30 3RF isosorbide mononitrate 30 mg Tablet Extended Release 24 Hr 30 mg PO DAILY 30 Days Qty: 30 3RF clopidogrel 75 mg Tablet 75 mg PO Q24H 30 Days Qty: 30 3RF aspirin 81 mg Tablet,Delayed Release (Dr/Ec) 81 mg PO DAILY 30 Days Qty: 30 3RF Lasix 20 mg tablet 20 mg PO DAILY PRN (Reason: edema) Qty: 30 3RF Rx Instructions: for edema, weight gain more then 3 pounds in 3 days and for associated sob Nitrostat 0.4 mg tablet, sublingual 0.4 mg sublingual Q5M PRN (Reason: chest pain) Qty: 30 1RF Rx Instructions: do not exceed 3 doses per episode Eliquis 5 mg tablet Entresto 24-26 mg tablet bumetanide 2 mg tablet potassium chloride 20 mEq tablet,ER particles/crystals PO Discharge Orders: Discharge ED (Routine); Ordered 01/01/24 Ordered By: Geoffrey Andrews Discharge Diet: Usual diet Discharge Activity: Increase activity as tolerated Patient Instructions: Opioid Safety, Pain Management Activity Restrictions/Additional Instructions: Thank you for choosing [facility] for your healthcare needs today. It is very important that you follow up as instructed or that you return to the Emergency Department should you have concerns or if your condition changes or worsens in any way. You are seen in the emergency room EKG and cardiac enzymes are negative. continue your current medicaitons and follow up with your software sales representative in the next 7-10 days. Sign Out Sign Out Data: Patient Sign Out occurred on 01/01/24 at 05:31. Patient's care was discussed, and care was transferred from Pipo Parra DO to Geoffrey Andrews DO. Coding Level of Care Code ED Oral Pathologist for Chg Fwd Documented by User: Geoffrey Andrews DO 01/03/24 05:48 HPI - Chest Pain 2 General: Chief Complaint: Chest Pain Stated Complaint: chest pain Time Seen by Provider: 01/01/24 04:13 Related Data Home Medications Medication Instructions Recorded Confirmed lisinopril 2.5 mg tablet 2.5 mg PO BEDTIME 02/21/22 03/01/22 metoprolol succinate 25 mg 12.5 mg PO BEDTIME 02/21/22 03/01/22 tablet,extended release 24 hr potassium chloride 20 mEq 40 meq PO DAILY 02/21/22 03/01/22 tablet,extended release(part/cryst) apixaban 5 mg tablet (Eliquis) mg 01/01/24 bumetanide 2 mg tablet mg 01/01/24 potassium chloride 20 mEq meq PO 01/01/24 tablet,extended release(part/cryst) sacubitril 24 mg-valsartan 26 mg tab 01/01/24 tablet (Entresto) Previous Rx's Medication Instructions Recorded quetiapine 100 mg tablet 100 mg PO BEDTIME 30 days #30 tabs 02/27/22 sertraline 50 mg tablet 50 mg PO DAILY 30 days #30 tabs 02/27/22 aspirin 81 mg tablet,delayed 81 mg PO DAILY 30 days #30 tabs 02/28/22 release atorvastatin 40 mg tablet 40 mg PO BEDTIME 30 days #30 tabs 02/28/22 clopidogrel 75 mg tablet 75 mg PO Q24H 30 days #30 tabs 02/28/22 furosemide 20 mg tablet (Lasix) 20 mg PO DAILY PRN edema #30 tabs 02/28/22 isosorbide mononitrate 30 mg 30 mg PO DAILY 30 days #30 tabs 02/28/22 tablet,extended release 24 hr nitroglycerin 0.4 mg sublingual 0.4 mg sublingual Q5M PRN chest 02/28/22 tablet (Nitrostat) pain #30 tabs Allergies Allergy/AdvReac Type Severity Reaction Status Date / Time No Known Allergies Allergy Verified 01/01/24 04:[facility] PFSH: Medical History Methamphetamine abuse Elevated troponin Course 2 Vital Signs: Vital signs: Vital Signs Temperature 98.1 F 01/01/24 04:08 Pulse Rate 60 01/01/24 07:34 Respiratory Rate 14 01/01/24 06:35 Blood Pressure 107/76 01/01/24 07:34 Pulse Oximetry 100 01/01/24 07:34 Oxygen Delivery Me thod Room Air 01/01/24 06:18 MDM - Chest Pain Medical Decision Making Care transferred over to Dr. Andrews at shift change Cardiac enzymes unchanged. EKG does not show any acute changes no current chest pain at this time. Discharge patient home continue current medications without changes follow-up with cardiology Lab Data 01/01/24 04:30 01/01/24 04:30 Radiology Impressions Chest X-Ray 01/01/24 04:17 IMPRESSION: 1. No acute cardiopulmonary findings. Laboratory Results WBC 10.50 10^3/uL (3.29-11.43) 01/01/24 04:30 RBC 5.19 10^6/uL (3.85-5.65) 01/01/24 04:30 Hgb 15.70 g/dL (11.27-16.99) 01/01/24 04:30 Hct 46.0 % (37-53) 01/01/24 04:30 MCV 88.6 fl (82-101) 01/01/24 04:30 MCH 30.3 pg (27-33) 01/01/24 04:30 MCHC 34.1 g/dL (30-55) 01/01/24 04:30 RDW 12.1 % (12.1-15.1) 01/01/24 04:30 Plt Count 295 10^3/cmm (157-399) 01/01/24 04:30 MPV 9.2 fL (7.4-10.4) 01/01/24 04:30 Neut % (Auto) 73.1 % 01/01/24 04:30 Lymph % (Auto) 16.7 % 01/01/24 04:30 Runnels % (Auto) 8.7 % 01/01/24 04:30 Eos % (Auto) 0.6 % 01/01/24 04:30 Baso % (Auto) 0.6 % 01/01/24 04:30 Neut # (Auto) 7.69 10^3/uL (1.8-7.7) 01/01/24 04:30 Lymph # (Auto) 1.8 10^3/uL (0.8-4.8) 01/01/24 04:30 Runnels # (Auto) 0.9 10^3/uL (0.2-0.9) 01/01/24 04:30 Eos # (Auto) 0.1 10^3/uL (0.0-0.8) 01/01/24 04:30 Baso # (Auto) 0.1 10^3/uL (0.0-0.1) 01/01/24 04:30 Nucleated RBC % (auto) 0 % 01/01/24 04:30 Nucleated RBCs # 0.0 /100WBC 01/01/24 04:30 PT 15.80 SECONDS (12.1-14.9) H 01/01/24 04:30 INR 1.22 (0.8-1.2) H 01/01/24 04:30 Sodium 139 mmol/L (136-145) 01/01/24 04:30 Potassium 3.6 mmol/L (3.5-5.1) 01/01/24 04:30 Chloride 98 mmol/L (98-107) 01/01/24 04:30 Carbon Dioxide 27 mmol/L (22-29) 01/01/24 04:30 Anion Gap 17.6 (5-19) 01/01/24 04:30 BUN 16 mg/dL (6-20) 01/01/24 04:30 Creatinine 1.0 mg/dL (0.7-1.2) 01/01/24 04:30 GFR Calculation 83.2 mL/min (90-130) L 01/01/24 04:30 Glucose 106 mg/dL (65-115) 01/01/24 04:30 Calculated Osmolality 290 mOsm/kg (285-295) 01/01/24 04:30 Calcium 8.8 mg/dL (8.5-10.5) 01/01/24 04:30 Magnesium 2.1 mg/dL (1.7-2.3) 01/01/24 04:30 Total Bilirubin 0.5 mg/dL (0.15-1.2) 01/01/24 04:30 AST 22 U/L (0-40) 01/01/24 04:30 ALT 17 U/L (0-41) 01/01/24 04:30 Alkaline Phosphatase 131 U/L (40-130) H 01/01/24 04:30 Creatine Kinase 139 U/L (39-308) 01/01/24 04:30 Troponin T Baseline 23 ng/L (0-15) H 01/01/24 04:30 Troponin T 120 Minute 17.40 ng/L (0-15) H 01/01/24 06:27 Delta Troponin T -5.60 ABS# (0-10) L 01/01/24 06:27 NT-Pro-B Natriuret Pep 275 pg/mL (0-125) H 01/01/24 04:30 Total Protein 7.5 g/dL (6.6-8.7) 01/01/24 04:30 Albumin 4.9 g/dL (3.5-5.2) 01/01/24 04:30 Globulin 2.6 g/dL (1.3-4.6) 01/01/24 04:30 Discharge Plan Discharge Patient Disposition: Home Clinical Impression: Cardiomyopathy Condition: Stable Prescriptions: No Action potassium chloride 20 mEq tablet,ER particles/crystals 40 meq PO DAILY metoprolol succinate 25 mg tablet extended release 24 hr 12.5 mg PO BEDTIME lisinopril 2.5 mg tablet 2.5 mg PO BEDTIME quetiapine 100 mg tablet 100 mg PO BEDTIME 30 Days Qty: 30 1RF sertraline 50 mg tablet 50 mg PO DAILY 30 Days Qty: 30 1RF atorvastatin 40 mg Tablet 40 mg PO BEDTIME 30 Days Qty: 30 3RF isosorbide mononitrate 30 mg Tablet Extended Release 24 Hr 30 mg PO DAILY 30 Days Qty: 30 3RF clopidogrel 75 mg Tablet 75 mg PO Q24H 30 Days Qty: 30 3RF aspirin 81 mg Tablet,Delayed Release (Dr/Ec) 81 mg PO DAILY 30 Days Qty: 30 3RF Lasix 20 mg tablet 20 mg PO DAILY PRN (Reason: edema) Qty: 30 3RF Rx Instructions: for edema, weight gain more then 3 pounds in 3 days and for associated sob Nitrostat 0.4 mg tablet, sublingual 0.4 mg sublingual Q5M PRN (Reason: chest pain) Qty: 30 1RF Rx Instructions: do not exceed 3 doses per episode Eliquis 5 mg tablet Entresto 24-26 mg tablet bumetanide 2 mg tablet potassium chloride 20 mEq tablet,ER particles/crystals PO Discharge Orders: Discharge ED (Routine); Ordered 01/01/24 Ordered By: Geoffrey Andrews Discharge Diet: Usual diet Discharge Activity: Increase activity as tolerated Patient Instructions: Opioid Safety, Pain Management Activity Restrictions/Additional Instructions: Thank you for choosing [facility] for your healthcare needs today. It is very important that you follow up as instructed or that you return to the Emergency Department should you have concerns or if your condition changes or worsens in any way. You are seen in the emergency room EKG and cardiac enzymes are negative. continue your current medicaitons and follow up with your software sales representative in the next 7-10 days. Sign Out Sign Out Data: Patient Sign Out occurred on 01/01/24 at 05:31. Patient's care was discussed, and care was transferred from Pipo Parra DO to Geoffrey Andrews DO. Coding Level of Care Code ED Oral Pathologist for Bruce Doll
--- NOTE | 2024-01-01 04:17 | XRR_ITS ---
PROCEDURE INFORMATION: Exam: XR Chest Exam date and time: 01/01/2024 4:40 AM Age: 38 years old Clinical indication: Pain; Chest pressure; Additional info: Chest pain TECHNIQUE: Imaging protocol: Radiologic exam of the chest. Views: 1 view. COMPARISON: CR (CHEST, ) 02/22/2022 6:59 PM FINDINGS: Tubes, catheters and devices: There appears to be a septal closure device overlying the heart. Lungs: Unremarkable. No consolidation. Pleural spaces: Unremarkable. No pleural effusion. No pneumothorax. Heart/Mediastinum: Unremarkable. No cardiomegaly. Bones/joints: Unremarkable. XR/XR chest 1V portable [id number] IMPRESSION: 1. No acute cardiopulmonary findings.
[2024-01-01 04:40] LABS: Basophils # 0.1 10^3/uL (0.0-0.1); Basophils % 0.6 %; Eosinophils # 0.1 10^3/uL (0.0-0.8); Eosinophils % 0.6 %; Lymphocytes # 1.8 10^3/uL (0.8-4.8); Lymphocytes % 16.7 %; Mean Corpuscular HGB Conc 34.1 g/dL (30-55); Mean Corpuscular Hemoglobin 30.3 pg (27-33); Mean Corpuscular Volume 88.6 fl (82-101); Mean Platelet Volume 9.2 fL (7.4-10.4); Monocytes # 0.9 10^3/uL (0.2-0.9); Monocytes % 8.7 %; Neutrophils # 7.69 10^3/uL (1.8-7.7); Neutrophils % 73.1 %; Nucleated Red Blood Cells % 0 %; Platelet Count 295 10^3/cmm (157-399); Red Blood Count 5.19 10^6/uL (3.85-5.65); Red Cell Distribution Width 12.1 % (12.1-15.1)
[2024-01-01 04:48] VITALS: BP 96/78; PULSE 72; RESP 12; O2SAT 99
[2024-01-01 04:50] LABS: INR 1.22 (0.8-1.2)
[2024-01-01] MEDS: sodium chloride 0.9% 1,000 ML 999 ML IV (04:56)
[2024-01-01] MEDS: aspirin 81 mg Chew Tablet 324 MG PO (04:56)
[2024-01-01 05:03] LABS: Troponin(5th) Baseline 23 ng/L (0-15)
[2024-01-01 05:13] LABS: Alanine Aminotransferase 17 U/L (0-41); Albumin Level 4.9 g/dL (3.5-5.2); Alkaline Phosphatase 131 U/L (40-130); Anion Gap 17.6 (5-19); Aspartate Amino Transferase 22 U/L (0-40); Blood Urea Nitrogen 16 mg/dL (6-20); Calcium 8.8 mg/dL (8.5-10.5); Carbon Dioxide 27 mmol/L (22-29); Chloride 98 mmol/L (98-107); Creatine Phosphokinase 139 U/L (39-308); Creatinine Clr Calc Pharmacy 107.9718; Globulin 2.6 g/dL (1.3-4.6); Glomerular Filtration Rate 83.2 mL/min (90-130); Glucose 106 mg/dL (65-115); Magnesium 2.1 mg/dL (1.7-2.3); NT Pro B Type Natriuretic Pept 275 pg/mL (0-125); Osmolality Calculated 290 mOsm/kg (285-295); Potassium 3.6 mmol/L (3.5-5.1); Sodium 139 mmol/L (136-145); Total Bilirubin 0.5 mg/dL (0.15-1.2); Total Protein 7.5 g/dL (6.6-8.7)
[2024-01-01 05:18] VITALS: BP 102/81; PULSE 74; RESP 16; O2SAT 96
[2024-01-01 06:18] VITALS: BP 92/60; PULSE 56; RESP 17; O2SAT 100
[2024-01-01 06:35] VITALS: BP 118/77; PULSE 56; RESP 14; O2SAT 100
--- NOTE | 2024-01-01 06:35 | ECG_ITS ---
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1985 Requested By: Pipo Parra Order Number: [id number] Reading MD: JANA COOPER Measurements Intervals [place] Rate: 54 P: 66 VT: 170 QRS: -61 QRSD: 105 T: 142 QT: 510 QTc: 485 Interpretive Statements SINUS BRADYCARDIA LEFT ANTERIOR FASCICULAR BLOCK [QRS AXIS <= -45, QR IN I, RS IN II] ST DEVIATION AND MARKED T-WAVE ABNORMALITY, CONSIDER LATERAL ISCHEMIA [-0.5+ mV T-WAVE IN I/aVL/V5/V6] Compared to ECG 01/01/2024 04:11:39 Left anterior fascicular block now present T-wave abnormality now present Possible ischemia now present Sinus rhythm no longer present Left-axis deviation no longer present Left ventricular hypertrophy no longer present ST (T wave) deviation no longer present Electronically Signed On 01-01-2024 18:09:18 RADIOISOTOPE PRODUCTION OPERATOR by JANA COOPER [email or web address]
[2024-01-01 07:34] VITALS: BP 107/76; PULSE 60; O2SAT 100
== END 2024-01-01 07:35 | disposition home or self-care (01) ==
PROVIDERS: Emergency Medicine; Emergency Provider Family Medicine
DX: I42.9 Cardiomyopathy, unspecified (principal); Z79.82 Long term (current) use of aspirin
CPT/HCPCS: 36415; 71045; 80053; 82550; 83735; 83880; 84484; 85025; 85610; 93005; 99285; J7030